=== PATIENT | male | born 1965 | race Two or more races ===

== ENCOUNTER 2024-05-19 13:31 | Outpatient (REF) | payer MEDICAID, SELFPAY ==
--- NOTE | ~2024-05-19 | XR_ITS ---
EXAMINATION: XR CHEST CLINICAL INFORMATION: Cough x1 month. COMPARISON: None available. TECHNIQUE: 2 views of the chest were obtained. FINDINGS: There are some discoid densities seen at the left lung base consistent with atelectasis or scarring. No significant confluent parenchymal disease is seen. Heart normal size. No evidence of pulmonary edema. No pneumothorax or pleural effusion. There is a 6 mm density seen at the right lung base somewhat peripherally which may represent vascular shadows, however, density of other etiology is not excluded and repeat study with nipple markers in place is recommended. XR/XR chest 2V IMPRESSION: A 6 mm density right lung base for which repeat PA study with nipple markers in place is recommended. Electronically signed by: Neil Howell MD 05/19/2024 03:53 PM [facility]REWS
== END 2024-05-19 13:32 | disposition home or self-care (01) ==
LOC: HO.HHCX 13:31
PROVIDERS: Visit Provider Internal Medicine
DX: R05.2 Subacute cough (principal)
CPT/HCPCS: 71046

== ENCOUNTER 2024-06-24 06:56 | Outpatient (REF) | payer MEDICAID, SELFPAY | END 2024-06-24 06:57 | disposition home or self-care (01) | LOC: HO.CT 06:56 | PROVIDERS: Visit Provider Internal Medicine | DX: J98.4 Other disorders of lung (principal); F17.200 Nicotine dependence, unspecified, uncomplicated | CPT/HCPCS: 71250 ==

== ENCOUNTER → 2024-06-24 06:58 | Outpatient (BNV) | payer MEDICAID, SELFPAY | PROVIDERS: Visit Provider Radiology Diagnostic Radiology | DX: R91.1 Solitary pulmonary nodule (principal); F17.200 Nicotine dependence, unspecified, uncomplicated | CPT/HCPCS: 71250 ==

== ENCOUNTER → 2024-08-06 15:37 | Outpatient (BNV) | payer MEDICAID, SELFPAY | PROVIDERS: Visit Provider Radiology Diagnostic Radiology | DX: M25.562 Pain in left knee (principal) | CPT/HCPCS: 73564 ==

== ENCOUNTER 2024-09-02 15:51 | Outpatient (REF) | payer MEDICAID, SELFPAY ==
[2024-09-02 18:16] LABS: MANUAL DIFF FLAG NO
[2024-09-02 18:35] LABS: Estimated Average Glucose 117 mg/dL; Hemoglobin A1C 154.6008 umol/L; Hemoglobin A1c % 5.7 % (<6.0); Total Hemoglobin (HGBA1C) 3976.2711 umol/L
[2024-09-02 18:47] LABS: Alanine Aminotransferase 41 U/L (0-40); Albumin Level 4.2 g/dL (3.5-5.0); Alkaline Phosphatase 69 U/L (39-117); Anion Gap 14 (12-20); Aspartate Amino Transferase 30 U/L (5-37); Bilirubin Total 0.3 mg/dL (0.0-1.0); Blood Urea Nitrogen 21 mg/dL (9-16); Calcium 8.9 mg/dL (8.4-10.2); Carbon Dioxide 24 mmol/L (22-29); Chloride 108 mmol/L (96-108); Cholesterol 163 mg/dL (<200); Estimated Glomerular Filt Rate > 60; Glucose Random 105 mg/dL (60-115); HDL Cholesterol 44 mg/dL (>40); LDL Cholesterol Calculated 85 mg/dL (<100); Potassium 3.9 mmol/L (3.3-5.1); Sodium 142 mmol/L (135-145); Total Protein 7.6 g/dL (6.5-8.0); Triglycerides 173 mg/dL (<150)
[2024-09-02 18:54] LABS: Basophils Absolute Auto 0.1 X10*3/uL (0.0-0.2); Basophils Percent Auto 0.9 % (0-2); Eosinophils Absolute Auto 0.1 X10*3/uL (0.0-0.4); Eosinophils Percent Auto 1.1 % (0-4); Hematocrit 44.7 % (42.0-52.0); Hemoglobin 15.5 g/dl (14.0-18.0); Imm Gran Abs Auto 0.06 X10*3/uL (0.00-0.03); Imm Gran Pct Auto 0.6 % (0.0-0.4); Lymphocytes Absolute Auto 2.3 X10*3/uL (1.2-4.9); Lymphocytes Percent Auto 24.7 % (20-40); Mean Corpuscular HGB Conc 34.7 g/dl (31.0-36.0); Mean Corpuscular Hemoglobin 29.9 pg (27.0-33.0); Mean Corpuscular Volume 86.3 fL (80.0-98.0); Mean Platelet Volume 10.5 fL (9.4-12.4); Monocytes Absolute Auto 0.8 X10*3/uL (0.1-1.2); Monocytes Percent Auto 8.2 % (2-11); Neutrophils Absolute Auto 6.1 x10*3/uL (2.0-8.3); Neutrophils Percent Auto 64.5 % (45-73); Platelet Count 246 X10*3/uL (160-400); Red Blood Count 5.18 X10*6/uL (4.60-5.80); White Blood Count 9.4 X10*3/uL (4.8-10.8)
[2024-09-02 19:05] LABS: TSH reflex Free T4 2.06 uIU/mL (0.32-4.0)
[2024-09-02 19:14] LABS: Reflex LDLD? No
--- OUTSIDE RECORDS SUMMARY | 2024-09-02 19:51 | XMS_ITS | Clinical Summary ---
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 30 patch 1 4 Active olmesartan-hydro CHLOROthiazide (Benicar HCT) 20-12.5 MG tabletIndication s:Hypertension, unspecified type Take 1 tablet by mouth Once per day. 90 tablet 2 5 08/05/19 26 Active Blood Pressure Monitoring (Blood Pressure Cuff) miscIndications: Hypertension, unspecified type 1 kit if needed each day (elevated bp). 1 each 5 Active losartan (Cozaar) 50 MG tabletIndication s:Hypertension, unspecified type TAKE 1 TABLET BY MOUTH EVERY DAY 90 tablet 5 08/05/19 25 Discontinu ed(Therapy completed) Active Problems Problem Noted Date Diagnosed Date Colon cancer screening 08/24/2024 Assessment & Plan (08/24/2024 4:37 PM EST): Sharda ordered Dietary counseling 08/24/2024 Assessment & Plan (08/24/2024 4:37 PM EST): Dietary Recommendations: Fruits, vegetables, whole grains, protein foods, and fat-free or low-fat dairy products are healthy choices. Eat different types of protein foods in your diet. This can include seafood, lean meats, poultry, beans, peas, lentils, nuts, seeds, soy products, and eggs. Limit foods and beverages higher in added sugars, saturated fat, and sodium. Exercise Recommendations: At least 150 minutes of moderate-intensity physical activity per week, or an equivalent combination of moderate- and vigorous-intensity activity Exercise counseling 08/24/2024 Chronic pain of left knee 08/05/2024 Assessment & Plan (08/24/2024 4:37 PM EST): Suspect OA, X-ray ordered Pt declines physical therapy at this time Referral to ortho Screening for colon cancer 06/29/2024 Assessment & Plan (06/29/2024 5:07 PM EST): Routine labs ordered, Tobacco use disorder 06/20/2024 Assessment & Plan (08/24/2024 4:37 PM EST): Reviewed tobacco cessation strategies , pt contemplative Assessment & Plan (06/29/2024 5:05 PM EST): Pt motivated to cut down, patch prescribed Hypertension 06/20/2024 Assessment & Plan (06/29/2024 5:07 PM EST): Above goal, increase losartan Metabolic labs ordered Counseling regarding lifestyle completed Metabolic labs ordered Lung density on x-ray 05/20/2024 Smoker 05/20/2024 Elevated blood pressure reading 05/13/2024 Assessment & Plan (05/13/2024 5:27 PM EST): No known hx HTN. Advised to fu with RN re htn in 3-4w Counseled re low salt diet/increase moderate physical activity. Subacute cough 05/13/2024 Assessment & Plan (05/13/2024 5:27 PM EST): It seems to be URI, however given hx smoking and dysphonia, there's concern about malignancy. I will rx Strep (unclear if a colonizer since clinically her pharynx is normal)with PCN and fu in 1m. Advised to quit smoking, do gargles with warm water and slat or sarahi tea. Increase water intake. Order CXR and labs, fu with new PCP in 1-2m Encounters Date Type Department Care Team Description 08/05/2024 3:15 PM EST Office Visit [address] [address] Clarisa Diana NP Hypertension, unspecified type (Primary Dx); Tobacco use disorder; Chronic pain of left knee; Screening for colon cancer; Colon cancer screening; Dietary counseling; Exercise counseling 08/01/2024 Telephone [facility] [address] [place] [phone] Hoa Ariza RN 07/31/2024 Telephone [facility] [address] [place] [phone] Hoa Ariza RN Results 07/24/[address] [address] Soheila Pierre [place] Chart Prep 07/19/[address] [address] Clarisa Diana NP Hypertension, unspecified type 06/20/2024 9:45 AM EST Office Visit [address] [address] Clarisa Diana NP Tobacco use disorder (Primary Dx); Hypertension, unspecified type; Healthcare maintenance 06/13/2024 Patient Outreach [facility] [address] [place], [place] [phone] Sridevi Nj FNP Pre-visit Planning (SDOH negative, Tobacco screening negative. ) from Last 3 Months Social History Tobacco Use Types Packs/Day Years Used Date Smoking Tobacco: Every Day Cigarettes Tobacco Cessation:Ready to Q uit: Not Asked; Counseling Given: Not Answered Depression Answer Date Recorded Patient Health Questionnaire-9 Score 0 06/20/2024 Patient Health Questionnaire-9 Score 0 06/20/2024 Last PHQ-9: Questionnaire Data Not on file 1 08/21/2023 Housing Stability Answer Date Recorded What is your housing situation today? I have porfirio foreman 06/13/[address] you li ve. Do you have problems with any of the following? None of the above 06/13/2024 Food Insecurity Answer Date Recorded Within the past 12 months, y ou worried that your food would run out before you got money to buy more: Never True 06/13/2024 Within the past 12 months,th e food you bought just didn't last and you didn't have enough money to get more: Never True Transportation Answer Date Recorded In the past 12 months, has l ack of transportation kept you from medical appts, meetings, work or from getting things needed for daily living? No 06/13/2024 Utilities Answer Date Recorded In the past 12 months, has t he electric, gas, oil or water company threatened to shut off services in your home? No 06/13/2024 Depression Answer Date Recorded Patient Health Questionnaire-2 Score 0 06/20/2024 Internet Access Answer Date Recorded Internet Access Q1 Yes 06/13/2024 Internet Access Q2 Not on file 06/13/2024 Sex and Gender Information Value Date Recorded Sex Assigned at Male 05/01/2022 10:39 AM EDT Legal Sex Male 10:39 AM EDT Gender Identity Male 05/01/2022 10:39 AM EDT Sexual Orientation Straight 05/01/2022 10 :39 AM EDT Last Filed Vital Signs Vital Sign Reading Time Taken Comments Blood Pressure 157/87 08/05/2024 3:06 PM EST Pulse 93 08/05/2024 3:06 PM EST Temperature 36.9 ??C (98.4 ??F) 08/05/2024 3:06 PM ES T Respiratory Rate 18 08/05/2024 3:06 PM EST Oxygen Saturation 98% 08/05/2024 3:06 PM EST Inhaled Oxygen Concentration - - Weight 106 kg (233 lb 6.4 oz) 08/05/2024 3:06 PM EST Height 165.1 cm (5' 5 ) 08/05/2024 3:06 PM EST Body Mass Index 38.84 08/05/2024 3:06 PM EST Plan of Treatment Upcoming Encounters Date Type Department Care Team (Late st Contact Info) Description 09/19/2024 2:30 PM EDT Office Visit [facility] [address] [place], [place] [phone] Clarisa Diana NP [address] [place] [address] Health Maintenance Due Date Last Done Comments CT Colonography 1965 Colonoscopy 1966 FIT 1965 FOBT 1965 HIV Screening 1965 Sigmoidoscopy 1966 Hepatitis C Screening 1984 DTaP/Tdap/Td Vaccines (1 - Tdap) 1985 Hepatitis B Vaccines (1 of 3 - 19+ 3-dose series) 1985 Pneumococcal Vaccine: 50+ Years (1 of 2 - PCV) 1985 Zoster Vaccines (1 of 2) 2016 COVID-19 Vaccine (3 - 2023-2 5 season) 2024 02/16/2021, 01/15/2021 Influenza Vaccine (#1) 2024 SDOH Screening 06/13/2025 06/13/2024 Alcohol/Substance Use Screening 06/20/2025 06/20/2024 Depression Screening 06/20/2025 06/20/2024, 06/20/2024 Tobacco Screening 08/05/2025 08/05/2024 Diabetes: Hemoglobin A1C 09/02/2025 09/02/2024 Colorectal Cancer Screening 08/21/2027 FIT DNA/Cologuard 08/21/2027 08/21/2024 Lipid Panel 09/02/2029 09/02/2024 RSV Patients and Patients Aged 60 years or older (1 - 1-dose 75+ series) 2041 HIB Vaccines Aged Out No longer eligi ble based on patient's age to complete this topic HPV Vaccines Aged Out No longer eligi ble based on patient's age to complete this topic Hepatitis A Vaccines Aged Out No long er eligible based on patient's age to complete this topic IPV Vaccines Aged Out No longer eligi ble based on patient's age to complete this topic Meningococcal Vaccine Aged Out No melissa karlo eligible based on patient's age to complete this topic RSV under 20 months Aged Out No longe r eligible based on patient's age to complete this topic Rotavirus Vaccines Aged Out No longer eligible based on patient's age to complete this topic Procedures Procedure Name Priority Date/Time Associated Diagnosis Comments LIPID PANEL, STANDARD Routine 09/02/2024 3:55 PM EST Hypertension, unspecified type HEMOGLOBIN A1C Routine 09/02/2024 3:55 PM EST Hypertension, unspecified type TSH W/REFLEX TO FT4 Routine 09/02/2024 3 :55 PM EST Elevated blood pressure reading CBC WITH AUTO DIFFERENTIAL Routine 09/02/2024 3:55 PM EST Subacute cough COMPREHENSIVE METABOLIC PANEL Routine 09/02/2024 3:55 PM EST Elevated blood pressure reading LAB COLOGUARD?? COLON CANCER SCREEN Routine 08/21/2024 5:00 AM EST Screening for colon cancer XR KNEE 4+ VIEWS LEFT Routine 08/06/2024 3:37 PM EST Chronic pain of left knee CT CHEST WO CONTRAST Routine 06/24/2024 7:15 AM EST Lung density on x-ray Smoker from Last 3 Months Results * TSH with Reflex to Free T4 (09/02/2024 3:55 PM EST) TSH reflex Free T4 2.06 0.32 - 4.0 uIU/mL [facility] Blood 09/02/2024 3:55 PM EST 09/02/2024 6:14 PM EST us Glo Gill MD LAB BLOOD ORDERABLES Fin al Result [facility] [address] [place] [phone] * (ABNORMAL) CBC auto differential (09/02/2024 3:55 PM EST) White Blood Count 9.4 4.8 - 10.8 X10*3/uL [facility] Red Blood Count 5.18 4.60 - 5.80 X10*6/uL [facility] Hemoglobin 15.5 14.0 - 18.0 g/dl [facility] Hematocrit 44.7 42.0 - 52.0 % [facility] Mean Corpuscular Volume 86.3 80.0 - 98.0 fL [facility] Mean Corpuscular Hemoglobin 29.9 27.0 - 33.0 pg [facility] Mean Corpuscular HGB Conc 34.7 31.0 - 36.0 g/dl [facility] Red Cell Distribution Width 14.0 11.0 - 16.0 % [facility] Platelet Count 246 160 - 400 X10*3/uL [facility] Mean Platelet Volume 10.5 9.4 - 12.4 fL [facility] Neutrophils Percent Auto 64.5 45 - 73 % [facility] Imm Gran Pct Auto 0.6(H) 0.0 - 0.4 % [facility] Lymphocytes Percent Auto 24.7 20 - 40 % [facility] Monocytes Percent Auto 8.2 2 - 11 % [facility] Eosinophils Percent Auto 1.1 0 - 4 % [facility] Basophils Percent Auto 0.9 0 - 2 % [facility] NRBC Pct Auto 0.0 0.0 - 0.2 /100WBC [facility] Neutrophils Absolute Auto 6.1 2.0 - 8.3 x10*3/uL [facility] Imm Gran Abs Auto 0.06(H) 0.00 - 0.03 X10*3/uL [facility] Lymphocytes Absolute Auto 2.3 1.2 - 4.9 X10*3/uL [facility] Monocytes Absolute Auto 0.8 0.1 - 1.2 X10*3/uL [facility] Eosinophils Absolute Auto 0.1 0.0 - 0.4 X10*3/uL [facility] Basophils Absolute Auto 0.1 0.0 - 0.2 X10*3/uL [facility] NRBC Abs Auto 0.000 0.0 - 0.012 X10*3/uL [facility] Blood Venous blood specimen / Unknown 09/02/2024 3:55 PM EST 09/02/2024 6:14 PM EST us Glo Gill MD LAB BLOOD ORDERABLES Fin al Result Performing Organization Address [facility] Co de Phone Number [facility] [address] [place] [phone] * Hemoglobin A1c (09/02/2024 3:55 PM EST) Hemoglobin A1c 5.7 <6.0 % [facility] Comment:Hemoglobin A1C Refer ence Range Adults: 4.8 - 6.0 % Non diabetic: < 6.0 % Goal: < 7.0 %Additional Action Suggested: > 8.0 %Note: Hemoglobin A1c results are invalid for patients with abnormal amounts of HbF. Blood transfusions may impact the HbA1c concentration in the patient sample. Estimated Average Glucose 117 mg/dL [facility] Comment:eAG = Estimated ave rage glucose which is %A1C expressed asaverage glucose, using the formula of the N1J-VtvcfljWrjrsek Glucose study (ADAG), Diabetes Care, Vol.31,#8,2007 Blood Venous blood specimen / Unknown 09/02/2024 3:55 PM EST 09/02/2024 6:14 PM EST us Clarisa Diana NP LAB BLOOD ORDERABLES Final Resul t Performing Organization Address [facility] Co de Phone Number [facility] [address] [place] [phone] * (ABNORMAL) Lipid Panel, Standard (09/02/2024 3:55 PM EST) Triglycerides 173(H) <150 mg/dL [facility] Comment:Desirable Triglyceri de: less than 150 mg/dLBorderline High Triglyceride 150-199 mg/dLHigh Triglyceride: 200-499 mg/dLVery High Triglyceride: greater than or equal to 5OO mg/dL Cholesterol 163 <200 mg/dL [facility] Comment:Desirable Cholestero l: less than 200 mg/dLBorderline High Cholesterol: 200-239 mg/dLHigh Cholesterol: greater than 239 mg/dL LDL Cholesterol Calculated 85 <100 mg/dL [facility] Comment:Desirable LDL: less than 100 mg/dLNear Optimal/Above Optimal LDL: 110- 129 mg/dLBorderline High LDL: 130-159 mg/dLHigh LDL: 160-189 mg/dLVery High LDL: greater than or equal to 190 mg/dL HDL Cholesterol 44 >40 mg/dL [facility] Comment:Desirable HDL: great er than 40 mg/dL Note: This HDL assay may give artificially low results in patients with liver disease. Blood Venous blood specimen / Unknown 09/02/2024 3:55 PM EST 09/02/2024 6:14 PM EST us Clarisa Diana DRILL PRESS SET UP OPERATOR RADIAL LAB BLOOD ORDERABLES Final Resul t [facility] [address] [place] [phone] * (ABNORMAL) Comprehensive Metabolic Panel (09/02/2024 3:55 PM EST) Sodium 142 135 - 145 mmol/L [facility] Potassium 3.9 3.3 - 5.1 mmol/L [facility] Chloride 108 96 - 108 mmol/L [facility] Carbon Dioxide 24 22 - 29 mmol/L [facility] Anion Gap 14 12 - 20 [facility] Urea Nitrogen (BUN) 21(H) 9 - 16 mg/dL [facility] Creatinine, Serum 0.91 0.5 - 1.4 mg/dL [facility] Estimated Glomerular Filt Rate >60 [facility] Comment:Chronic Kidney Disea se: Estimated GFR < 60 mL/min/1.47h1Wxxuig Kidney Disease: Estimated GFR < 15 mL/min/1.73m2 Glucose 105 60 - 115 mg/dL [facility] Calcium 8.9 8.4 - 10.2 mg/dL [facility] Bilirubin, Total 0.3 0.0 - 1.0 mg/dL [facility] Aspartate Amino Transferase 30 5 - 37 U/L [facility] Alanine Aminotransferase 41(H) 0 - 40 U/L [facility] Total Protein 7.6 6.5 - 8.0 g/dL [facility] Albumin Level 4.2 3.5 - 5.0 g/dL [facility] Alkaline Phosphatase 69 39 - 117 U/L [facility] Blood Venous blood specimen / Unknown 09/02/2024 3:55 PM EST 09/02/2024 6:14 PM EST Glo Gill MD LAB BLOOD ORDERABLES Fin al Result [facility] [address] [place] [phone] * (ABNORMAL) Cologuard?? colon cancer screening (08/21/2024 5:00 AM EST) Cologuard Result Positive( A) Negative 08/26/2024 7:47 PM EST [facility] (CLIA #:[id number]) Comment: POSITIVE TEST RESULT. A positive Cologuard result should be followed with a colonoscopy or visual examination of the colon. The normal value (reference range) for this assay is negative. TEST DESCRIPTION: Composite algorithmic analysis of stool DNA-biomarkers with hemoglobin immunoassay. ?? Quantitative values of individual biomarkers are not reportable and are not associated with individual biomarker result reference ranges. Cologuard is intended for colorectal cancer screening of adults of either sex, 45 years or older, who are at average-risk for colorectal cancer (CRC). Cologuard has been approved for use by the U.S. FDA. The performance of Cologuard was established in a cross sectional study of average-risk adults aged 50-84. Cologuard performance in patients ages 45 to 49 years was estimated by sub-group analysis of near-age groups. Colonoscopies performed for a positive result may find as the most clinically significant lesion: colorectal cancer [4.0%], advanced adenoma (including sessile serrated polyps greater than or equal to 1cm diameter) [20%] or non- advanced adenoma [31%]; or no colorectal neoplasia [45%]. These estimates are derived from a prospective cross-sectional screening study of 10,000 individuals at average risk for colorectal cancer who were screened with both Cologuard and colonoscopy. (Gale Orellana al, N Engl J Med 2014;370(14):6657-3487.) Cologuard may produce a false negative or false positive result (no colorectal cancer or precancerous polyp present at colonoscopy follow up). A negative Cologuard test result does not guarantee the absence of CRC or advanced adenoma (pre-cancer). The current Cologuard screening interval is every 3 years. ([employer] and U.S. Multi-Society Task Force). Cologuard performance data in a 10,000 patient pivotal study using colonoscopy as the reference method can be accessed at the following location: www.[employer].com/results. Additional description of the Cologuard test process, warnings and precautions can be found at www.[employer].Fliptop. Stool specimen (specimen) 08/21/2024 5:00 AM EST 08/23/2024 12:32 PM EST Clarisa Diana DRILL PRESS SET UP OPERATOR RADIAL LAB MOLECULAR DIAGNOSTICS ORDERA KANWAL Final Result [facility] (CLIA #:[id number]) [address] [place] [address], * XR Knee 4+ Views Left (08/06/2024 3:37 PM EST) Anatomical Region Laterality Modality Lower Extremities, Knee Left Radiogra phic Imaging 08/06/2024 3:37 PM EST Narrative 08/06/2024 4:33 PM EST ?[facility] ?[address] ?[place] [address] ?XRay Report ? Signed ? Patient: Solano,Johan ?MR#: [id number] ?? [id number] ? : 1965 ?Acct:[id number] ? Age/Sex: 59 / M ?ADM Date: 02/05/25 ? Loc: HO.HHCX ? Attending Dr: Clarisa Diana DRILL PRESS SET UP OPERATOR RADIAL ? Ordering Physician: Clarisa Diana NP ?? Date of Service: 08/06/24 ?? Procedure(s): XR knee LT 4V ?? Accession Number(s): [id number] ? cc: Clarisa Diana NP ? EXAMINATION: ?? XR KNEE, LEFT ? CLINICAL INFORMATION: ?? left knee pain and limited rom ? COMPARISON: ?? None available. ? TECHNIQUE: ?? Four views of the left knee. ? FINDINGS: ?? Reduction of tricompartment joint space without acute fracture, ?? dislocation, loose bodies. There is mild joint effusion. There is a ?? subtle lucency along lateral femoral condyle question focal osteopenia, ?? bone contusion ??or artifact. ? XR/XR knee LT 4V ?? IMPRESSION: ?? No acute fracture or dislocation. Subtle lucency along the lateral ?? femoral condyle on one view only. Artifact versus osteopenia or bone ?? marrow contusion. ? There is mild suprapatellar joint effusion. ? Electronically signed by: ??Buster Rocha MD ??08/06/2024 04:30 PM EST RP ? Dictated By: ?Buster Rocha MD ? Signed By: ?<Electronically signed by Buster Rocha MD in OV> ?08/06/24 1630 ? DD/ 1537 ? TD/TT: 08/06/24 1611 ? Business Banking Sales Assistant: MSM ? Procedure Note Corrina White - 08/06/2024 [place] [address] XRay Report Signed Patient: Anupama Solano#: [id number] : 1965Acct:[id number] Age/Sex: 59 / MADM Date: 08/06/24 Loc: HO.HHCX Attending Dr: Clarisa Diana DRILL PRESS SET UP OPERATOR RADIAL Ordering Physician: Clarisa Diana NP Date of Service: 08/06/24 Procedure(s): XR knee LT 4V Accession Number(s): [id number] cc: Clarisa Diana DRILL PRESS SET UP OPERATOR RADIAL EXAMINATION: XR KNEE, LEFT CLINICAL INFORMATION: left knee pain and limited rom COMPARISON: None available. TECHNIQUE: Four views of the left knee. FINDINGS: Reduction of tricompartment joint space without acute fracture, dislocation, loose bodies. There is mild joint effusion. There is a subtle lucency along lateral femoral condyle question focal osteopenia, bone contusion or artifact. XR/XR knee LT 4V IMPRESSION: No acute fracture or dislocation. Subtle lucency along the lateral femoral condyle on one view only. Artifact versus osteopenia or bone marrow contusion. There is mild suprapatellar joint effusion. Electronically signed by: Buster Rocha MD 08/06/2024 04:30 PM EST RP Dictated By: Buster Rocha MD Signed By: <Electronically signed by Buster Rocha MD in OV> 08/06/24 1630 DD/ 1537 TD/TT: 08/06/24 1611 Business Banking Sales Assistant: JARON us Clarisa Diana NP IMG XR PROCEDURES Edited Result - Final * CT Chest w/o Contrast (06/24/2024 7:15 AM EST) Anatomical Region Laterality Modality Body, Chest Computed Tomogra phy 06/24/2024 7:15 AM EST Narrative 07/30/2024 9:04 AM EST ? [facility] ?[address] ?[place] [address] ? CT Scan Report ? Signed ? Patient: Johan Solano ?MR#: [id number] ?? [id number] ? : 1965 ?Acct:[id number] ? Age/Sex: 59 / M ?ADM Date: 06/24/24 ? Loc: HO.CT ? Attending Dr: Glo Gill MD ? Ordering Physician: Glo Gill MD ?? Date of Service: 06/24/24 ?? Procedure(s): CT chest wo IV con ?? Accession Number(s): [id number] ? cc: Glo Gill MD ? Report Number: ?? [id number]: Total DLP = ??279.00 mGy-cm ?? EXAMINATION: CT CHEST WITHOUT IV CONTRAST ? INDICATION: right base lung density/smoker ? COMPARISON: There are no prior studies available for comparison. ? TECHNIQUE: Helical CT scan of the chest was performed without ?? intravenous contrast. ??Coronal and sagittal reformatted images were ?? generated and reviewed. ? This CT exam was performed with one or more of the following dose ?? reduction techniques: automated exposure control, adjustment of the mA ?? and/or kV according to patient size, use of iterative reconstruction ?? technique. ? DLP: 279 mGy-cm ? CHEST: ? THYROID: The thyroid is unremarkable. ? LUNGS: There is a 2 mm nodule the left lung apex (series 5, image 79). ?? No additional pulmonary nodules are identified. There is linear ?? scarring in the right middle lobe, in the right lower lobe, and in the ?? lingula. There are no airspace opacities. ? MEDIASTINUM: There is no mediastinal lymphadenopathy. ? WILLA: Evaluation of the hilar regions is limited by lack of intravenous ?? contrast material. ? CARDIOVASCULATURE: The heart is normal in size. ??There is no ?? pericardial effusion. ??The thoracic aorta is normal in caliber. ? DEGREE OF CORONARY CALCIFICATION: ??mild ? PLEURA: ??There is no pleural effusion. ??No pneumothorax. ? MAIN AIRWAYS: The mainstem bronchi and proximal branches are patent. ? AXILLA: There is no axillary lymphadenopathy. ? BONES AND SOFT TISSUES: There is degenerative disc disease of the spine. ? UPPER ABDOMEN: The visualized portion of the liver demonstrates ?? diffusely decreased attenuation, consistent with steatosis. The ?? visualized portions of the spleen and right adrenal gland are ?? unremarkable. There is a 1.7 cm left adrenal nodule which measures -0.5 ?? HU in density, consistent with an adenoma. ? CT/CT chest wo IV con ?? IMPRESSION: ? 1. 2 mm left apical lung nodule. No additional pulmonary nodules are ?? identified. Follow-up should be performed according to Fleischner ?? Society guidelines below. ? 2. Hepatic steatosis. ? 3. 1.7 cm left adrenal adenoma. ? Fleischner Criteria for pulmonary nodule follow-up ? SOLID NODULES: ?? Low risk patient: ?? <6mm: no follow-up ?? 6-8mm: 6 month follow-up CT ?? >8mm: PET/Biopsy/ 3 month follow-up CT ? High risk patient: ?? <6mm: 12 month follow-up CT ?? 6-8mm: 6 month follow-up CT ?? >8mm: PET/Biopsy/ 3 month follow-up CT ? SUB-SOLID/GROUNDGLASS NODULES: ?? All patients: ?? > or = 6mm: 6 month follow-up CT ? *Please note that in patients in the following categories, the ?? Fleischner criteria do not apply: Immunocompromised, lung cancer ?? screening population, age below 35, and patients with known malignancy ? Electronically signed by: ??Pa Godoy MD ??07/30/2024 09:02 AM EST ? Dictated By: ?Pa Godoy MD ? Signed By: ?<Electronically signed by aP Godoy MD in OV> ?07/30/24 0902 ? DD/ ? TD/TT: 06/24/24731 ? Business Banking Sales Assistant: ? Procedure Note Christopher, Image - 07/30/[address] [place] [address] [address] Scan Report Signed Patient: Anupama Solano#: [id number] : 1965Acct:[id number] Age/Sex: 59 / MADM Date: 06/24/24 Loc: HO.CT Attending Dr: Glo Gill MD Ordering Physician: Glo Gill MD Date of Service: 06/24/24 Procedure(s): CT chest wo IV con Accession Number(s): [id number] cc: Glo Gill MD Report Number: [id number]: Total DLP = 279.00 mGy-cm EXAMINATION: CT CHEST WITHOUT IV CONTRAST INDICATION: right base lung density/smoker COMPARISON: There are no prior studies available for comparison. TECHNIQUE: Helical CT scan of the chest was performed without intravenous contrast. Coronal and sagittal reformatted images were generated and reviewed. This CT exam was performed with one or more of the following dose reduction techniques: automated exposure control, adjustment of the mA and/or kV according to patient size, use of iterative reconstruction technique. DLP: 279 mGy-cm CHEST: THYROID: The thyroid is unremarkable. LUNGS: There is a 2 mm nodule the left lung apex (series 5, image 79). No additional pulmonary nodules are identified. There is linear scarring in the right middle lobe, in the right lower lobe, and in the lingula. There are no airspace opacities. MEDIASTINUM: There is no mediastinal lymphadenopathy. WILLA: Evaluation of the hilar regions is limited by lack of intravenous contrast material. CARDIOVASCULATURE: The heart is normal in size. There is no pericardial effusion. The thoracic aorta is normal in caliber. DEGREE OF CORONARY CALCIFICATION: mild PLEURA: There is no pleural effusion. No pneumothorax. MAIN AIRWAYS: The mainstem bronchi and proximal branches are patent. AXILLA: There is no axillary lymphadenopathy. BONES AND SOFT TISSUES: There is degenerative disc disease of the spine. UPPER ABDOMEN: The visualized portion of the liver demonstrates diffusely decreased attenuation, consistent with steatosis. The visualized portions of the spleen and right adrenal gland are unremarkable. There is a 1.7 cm left adrenal nodule which measures -0.5 HU in density, consistent with an adenoma. CT/CT chest wo IV con IMPRESSION: 1. 2 mm left apical lung nodule. No additional pulmonary nodules are identified. Follow-up should be performed according to Fleischner Society guidelines below. 2. Hepatic steatosis. 3. 1.7 cm left adrenal adenoma. Fleischner Criteria for pulmonary nodule follow-up SOLID NODULES: Low risk patient: <6mm: no follow-up 6-8mm: 6 month follow-up CT >8mm: PET/Biopsy/ 3 month follow-up CT High risk patient: <6mm: 12 month follow-up CT 6-8mm: 6 month follow-up CT >8mm: PET/Biopsy/ 3 month follow-up CT SUB-SOLID/GROUNDGLASS NODULES: All patients: > or = 6mm: 6 month follow-up CT *Please note that in patients in the following categories, the Fleischner criteria do not apply: Immunocompromised, lung cancer screening population, age below 35, and patients with known malignancy Electronically signed by: Pa Godoy MD 07/30/2024 09:02 AM EST Dictated By: Pa Godoy MD Signed By: <Electronically signed by Pa Godoy MD in OV> 07/30/24901 DD/ TD/TT: 06/24/24 0732 Business Banking Sales Assistant: Glo Gill MD IMG CT PROCEDURES Edited Result - Final from Last 3 Months Insurance [facility] C3 Care Teams Industrial Aerial Installer Relationship Specialty Start Date End Date Clarisa Diana NP [address] [place] [id number] PCP - General Family Medicine 06/20/24
--- OUTSIDE RECORDS SUMMARY | 2024-09-02 19:51 | XMS_ITS | Encounter Summary ---
Author Organization [employer] Address [address] [facility] [address] [place] [address] Care Team Providers Care Ad Copy Writer Name Role Phone Clarisa Triplett NP Primary Care Provider [phone] Reason for Referral * Consultation (Urgent) - Authorized Specialty Diagnoses / Procedures Referred By Roby villa Referred To Contact Gastroenterology Diagnoses Colon cancer screening Clarisa Triplett NP [address] [place] [address] Phone: tel: fax: [facility] [address] [place] [address] Phone: tel: fax: Referral ID Status Reason Start Date Expiration Date Visits Requested Visits Authorized [id number] Authorized Specialty Services Required 08/27/2024 08/27/2025 6 6 * Consultation (Routine) - Authorized Specialty Diagnoses / Procedures Referred By Roby villa Referred To Contact Orthopaedic Surgery Diagnoses Chronic pain of left knee Clarisa Triplett NP [address] [place] [address] Phone: tel: fax: [facility] [address] [place] [address] Phone: tel: Referral ID Status Reason Start Date Expiration Date Visits Requested Visits Authorized [id number] Authorized Specialty Services Required 08/05/2024 08/05/2025 6 6 Encounter Details Date Type Department Care Team (Late st Contact Info) Description 08/05/2024 3:15 PM EST Office Visit [facility] [address] [place] [address] Clarisa Triplett NP [address] [place] [address] Hypertension, unspecified type (Primary Dx); Tobacco use disorder; Chronic pain of left knee; Screening for colon cancer; Colon cancer screening; Dietary counseling; Exercise counseling Social History Tobacco Use Types Packs/Day Years Used Date Smoking Tobacco: Every Day Cigarettes Depression Answer Date Recorded Patient Health Questionnaire-9 [...] Orientation Straight 05/01/2022 10 :39 AM EDT documented as of this encounter Last Filed Vital Signs Vital Sign Reading [...] Mass Index 38.84 08/05/2024 3:06 PM EST documented in this encounter Progress Notes * Clarisa Triplett, MEND WORKER - 08/05/2024 3:15 PM EST Subjective: Johan Solano is a 59 y.o. male with hypertension. Since last visit, taking and tolerating medications, no side effects, not checking home bp New concerns: left leg has been swollen for a year, No injury painful left knee is painful . Interferes with ability to exercise, worse after sitting still for prolonged times. No injury or instability, no redness fever or pain HPI Hypertension ROS: taking medications as instructed, no medication side effects noted, no TIA's, no chest pain on exertion, no dyspnea on exertion, and no swelling of ankles. BP Readings from Last 3 Encounters: 08/05/24 (!) 157/87 06/20/24 (!) 156/96 05/13/24 (!) 160/100 No results found for: CASTILLO DALEB24HUR Patient Active Problem List Diagnosis Elevated blood pressure reading Subacute cough Lung density on x-ray Smoker Tobacco use disorder Hypertension Screening for colon cancer Chronic pain of left knee Colon cancer screening Dietary counseling Exercise counseling Social History Tobacco Use Smoking Status Every Day Types: Cigarettes Smokeless Tobacco Not on file Objective: BP (!) 157/87 (BP Location: Left arm, Patient Position: Sitting, BP Cuff Size: Large adult) Pulse93 Temp 98.4 ??F (36.9 ??C) (Oral) Resp 18 Ht 5' 5 (1.651 m) Wt 233 lb 6.4 oz (106 kg) SpO2 98% BMI 38.84 kg/m?? Appearance alert, well appearing, and in no distress and overweight. General exam BP noted to be well controlled today in office, S1, S2 normal, no gallop, no murmur, chest clear, no JVD, no HSM, no edema. Lab review: orders written for new lab studies as appropriate; see orders. The ASCVD Risk score (Adolph LIN, et al., 2019) failed to calculate for the following reasons: Cannot find a previous HDL lab Cannot find a previous total cholesterol lab Current Outpatient Medications Medication Sig Dispense Refill Blood Pressure Monitoring (Blood Pressure Cuff) [facility] 1 kit if needed each day (elevated bp). 1 each0 nicotine (Nicoderm CQ) 21 MG/24HR patch Place 1 patch on the skin 1 (one) time each day at the sametime. 30 patch 1 olmesartan-hydroCHLOROthiazide (Benicar HCT) 20-12.5 MG tablet Take 1 tablet by mouth Once per day.90 tablet 2 No current facility-administered medications for this visit. Assessment: Hypertension improved, no significant medication side effects noted, and borderline controlled. Plan: Repeat labs ordered prior to next appointment. Reviewed diet, exercise and weight control. The following changes are to be made: discontinue losartan, initiate benicar hct 20-12.5 . Future bmp ordered Bp cuff prescribed Problem List Items Addressed This Visit Tobacco use disorder Current Assessment & Plan Reviewed tobacco cessation strategies , pt contemplative Hypertension - Primary Relevant Medications olmesartan-hydroCHLOROthiazide (Benicar HCT) 20-12.5 MG tablet Blood Pressure Monitoring (Blood Pressure Cuff) [facility] Screening for colon cancer Relevant Orders Cologuard?? colon cancer screening Chronic pain of left knee Current Assessment & Plan Suspect OA, X-ray ordered Pt declines physical therapy at this time Referral to ortho Relevant Orders XR Knee 4+ Views Left (Completed) Referral to Orthopaedic Surgery Colon cancer screening Current Assessment & Plan Cologuard ordered Dietary counseling Current Assessment & Plan Dietary Recommendations: Fruits, vegetables, whole grains, protein foods, and fat-free or low-fat dairy products are healthychoices. Eat different types of protein foods in your diet. This can include seafood, lean meats, poultry, beans, peas, lentils, nuts, seeds, soy products, and eggs. Limit foods and beverages higher in added sugars, saturated fat, and sodium. Exercise Recommendations: At least 150 minutes of moderate-intensity physical activity per week, or an equivalent combinationof moderate- and vigorous-intensity activity Exercise counseling documented in this encounter Miscellaneous Notes * Assessment & Plan Note - Clarisa Triplett NP - 08/24/2024 4:37 PM ESTAssociated Problem(s): Chronic pain of left knee Suspect OA, X-ray ordered Pt declines physical therapy at this time Referral to ortho * Assessment & Plan Note - Clarisa Triplett NP - 08/24/2024 4:37 PM ESTAssociated Problem(s): Colon cancer screening Cologuard ordered * Assessment & Plan Note - Clarisa Triplett NP - 08/24/2024 4:37 PM ESTAssociated Problem(s): Dietary counseling Dietary Recommendations: Fruits, vegetables, whole grains, protein foods, and fat-free or low-fat dairy products are healthychoices. Eat different types of protein foods in your diet. This can include seafood, lean meats, poultry, beans, peas, lentils, nuts, seeds, soy products, and eggs. Limit foods and beverages higher in added sugars, saturated fat, and sodium. Exercise Recommendations: At least 150 minutes of moderate-intensity physical activity per week, or an equivalent combinationof moderate- and vigorous-intensity activity * Assessment & Plan Note - Clarisa Triplett NP - 08/24/2024 4:37 PM ESTAssociated Problem(s): Tobacco use disorder Reviewed tobacco cessation strategies , pt contemplative * Addendum Note - Clarisa Triplett NP - 08/05/2024 3:15 PM ESTAddended by: CLARISA TRIPLETT on: 08/27/2024 10:05 AM Modules accepted: Orders documented in this encounter Plan of Treatment Upcoming Encounters Date Type Department Care Team (Late st Contact Info) Description 09/19/2024 2:30 PM EDT Office Visit [facility] [address] [place] [address] Clarisa Triplett NP [address] [place] [address] Scheduled Referrals Name Type Priority Associated Diagnoses Order Schedule Referral to Orthopaedic Surgery Outpatient Referral Routine Chronic pain of left knee Expected: 08/05/2024 (Approximate), Expires: 08/05/2025 Referral to Gastroenterology Outpatient Referral Urgent Colon cancer screening Expected: 08/27/2024 (Approximate), Expires: 08/27/2025 documented as of this encounter Procedures Procedure Name Priority Date/Time Associated Diagnosis Comments LAB COLOGUARD?? COLON CANCER SCREEN Routine 08/21/2024 5:00 AM EST Screening for colon cancer XR KNEE 4+ VIEWS LEFT Routine 08/06/2024 3:37 PM EST Chronic pain of left knee documented in this encounter Results * (ABNORMAL) Cologuard?? colon cancer screening (08/21/2024 5:00 AM EST) Cologuard Result Positive( A) Negative 08/26/2024 7:47 PM EST [email or web address] (CLIA #:[id number]) Comment: POSITIVE TEST RESULT. A positive Cologuard [...] (Gale Orellana al, N Engl J Med 2014;370(14):8943-7656.) Cologuard may produce a false negative or false positive result (no colorectal cancer or precancerous polyp present at colonoscopy follow up). A negative Cologuard test result does not guarantee the absence of CRC or advanced adenoma (pre-cancer). The current Cologuard screening interval is every 3 years. ([place] Cancer Society and U.S. Multi-Society Task Force). Cologuard performance data in a 10,000 patient pivotal study using colonoscopy as the reference method can be accessed at the following location: www.[employer].Lopoly/results. Additional description of the Cologuard test process, warnings and precautions can be found at www.cologuard.com. Stool specimen (specimen) 08/21/2024 5:00 AM EST 08/23/2024 12:32 PM EST Clarisa Triplett NP [facility] Final Result [email or web address] (CLIA #:[id number]) [address] [place] [address], * XR Knee 4+ Views Left (08/06/2024 3:37 PM EST) Anatomical Region Laterality Modality Lower Extremities, Knee Left Radiogra phic Imaging 08/06/2024 3:37 PM EST Narrative 08/06/2024 4:33 PM EST ?[facility] ?[address] ?[place] [address] ?XRay Report ? Signed ? Patient: Solano,Johan ?MR#: [id number] ?? [id number] ? : 1965 ?Acct:[id number] ? Age/Sex: 59 / M ?ADM Date: 08/06/24 ? Loc: HO.HHCX ? Attending Dr: Clarisa Triplett MEND WORKER ? Ordering Physician: Clarisa Triplett NP ?? Date of Service: 08/06/24 ?? Procedure(s): XR knee LT 4V ?? Accession Number(s): [id number] ? cc: Clarisa Triplett NP ? EXAMINATION: ?? XR KNEE, LEFT [...] 04:30 PM EST RP ? Dictated By: ?Josefina,Buster S MD ? Signed By: ?<Electronically signed by Buster S Josefina, in OV> ?08/06/24 1630 ? DD/ 1537 ? TD/TT: 08/06/24 1611 ? Statistician Mathematical: MSM ? Procedure Note Corrina White - 08/06/[address] [address] XRay Report Signed Patient: Anupama Solano#: [id number] : 1965Acct:[id number] Age/Sex: 59 / MADM Date: 08/06/24 Loc: HO.HHCX Attending Dr: Clarisa Triplett MEND WORKER Ordering Physician: Clarisa Triplett NP Date of Service: 08/06/24 Procedure(s): XR knee LT 4V Accession Number(s): [id number] cc: Clarisa Triplett MEND WORKER EXAMINATION: XR KNEE, LEFT CLINICAL INFORMATION: left [...] Buster Rocha MD 08/06/2024 04:30 PM EST Dictated By: Buster Rocha MD Signed By: <Electronically signed by Buster Rocha MD in OV> 08/06/24 1630 DD/ 1537 TD/TT: 08/06/24 1611 Statistician Mathematical: JARON Clarisa Triplett NP IMG XR PROCEDURES Edited Result - Final documented in this encounter Visit Diagnoses Diagnosis Hypertension, unspecified type- Primary Tobacco use disorder Chronic pain of left knee Screening for colon cancer Special screening for malignant neoplasms, colon Colon cancer screening Special screening for malignant neoplasms, colon Dietary counseling Dietary surveillance and counseling Exercise counseling documented in this encounter Additional Health Concerns Assessment Noted Time PHQ-9 Depression Total Score: 0 06/20/20 24 9:31 AM EST documented as of this encounter Care Teams Ad Copy Writer Relationship Specialty Start Date End Date Clarisa Triplett NP [address] [place] [id number] PCP - General Family Medicine 06/20/24 documented as of this encounter
[2024-09-03 08:22] LABS: HBS Num1 46.44 mIU/mL (0-7.99); HBc Num1 9.29 S/CO (0.00-0.79); HIV AB/AG Nonreactive (Nonreactive); HIV Num 1 0.06 S/CO (0.00-0.99); ~HepC Num1 0.11 S/CO (0.00-0.79); ~Hepatitis B Surface Antibody REACTIVE (Nonreactive); ~Hepatitis C Antibody Nonreactive (Nonreactive)
[2024-09-03 09:33] LABS: HBc Num2 9.15 S/CO; HBc Num3 9.22 S/CO; Hepatitis B Core Antibody Reactive (Nonreactive)
== END 2024-09-02 15:52 | disposition home or self-care (01) ==
LOC: HO.HHCL 15:51
PROVIDERS: Internal Medicine; Visit Provider Nurse Practitioner Family
DX: Z00.00 Encounter for general adult medical examination without abnormal findings (principal); R05.2 Subacute cough; R03.0 Elevated blood-pressure reading, without diagnosis of hypertension; I10 Essential (primary) hypertension
CPT/HCPCS: 36415; 80053; 80061; 83036; 84443; 85025; 86704; 86706; 86803; 87389

== ENCOUNTER 2024-10-15 11:47 | Outpatient (REF) | payer MEDICAID, SELFPAY ==
--- NOTE | ~2024-10-15 | XR_ITS ---
EXAMINATION: XR KNEE AP STANDING CLINICAL INFORMATION: M25.561 - Pain in right knee COMPARISON: Left knee radiographs 08/06/24. TECHNIQUE: AP bilateral standing view of the knees was obtained. FINDINGS: Mild bicompartmental osteoarthrosis of both knees, symmetrical. Normal alignment. No bone lesions or fractures. Normal-appearing soft tissues. XR/XR knee standing BI IMPRESSION: 1. No acute bony abnormalities. 2. Symmetrical bicompartmental osteoarthritis in both knees. Electronically signed by: Chalo Chinchilla MD 10/16/2024 12:23 PM EDT
--- OUTSIDE RECORDS SUMMARY | 2024-10-16 14:44 | XMS_ITS | Clinical Summary ---
Author Organization [employer] Address [address] [place] [address] Care Team Providers Care Rotary Helper Name Role Phone DarlingClarisa segura KIMMIE Primary Care Provider [phone] Allergies No known active allergies Medications nicotine [...] Type Department Care Team Description 09/17/2024 Telephone [facility] [address] [place] [phone] Clarisa Diana NP DNKA/Late Cancel 09/12/2024 Population Health Risk Score [facility] Department [address] [place] [phone] Provider, Population Health Generic 09/09/2024 Telephone [facility] [address] [place] [phone] Soheila Pierre MA Chart Prep 08/05/2024 3:15 PM EST Office Visit [facility] [address] [place] [phone] Clarisa Diana NP Hypertension, unspecified type (Primary Dx); Tobacco use disorder; Chronic pain of left knee; Screening for colon cancer; Colon cancer screening; Dietary counseling; Exercise counseling 08/01/2024 Telephone [facility] [address] [place] [phone] Hoa Ariza RN 07/31/2024 Telephone [facility] [address] [place] [phone] Hoa Ariza RN Results 07/24/2024 Telephone [facility] [address] [place] [phone] Soheila Pierre MA Chart Prep 07/19/[address] [address] Clarisa Diana NP Hypertension, unspecified type from [...] Description 11/11/2024 1:30 PM EDT Office Visit [facility] [address] [place] [address] Clarisa Diana NP [address] [place] [address] Health Maintenance Due Date Last Done Comments [...] Free T4 2.06 0.32 - 4.0 uIU/mL [facility] Blood 09/02/2024 3:55 PM EST 09/02/2024 6:14 PM EST us Glo Gill MD LAB BLOOD ORDERABLES Fin al Result [facility] [address] [place] [phone] * (ABNORMAL) CBC auto differential (09/02/2024 3:55 PM EST) White Blood Count 9.4 4.8 - 10.8 X10*3/uL [facility] Red Blood Count 5.18 4.60 - 5.80 X10*6/uL [facility] Hemoglobin 15.5 14.0 - 18.0 g/dl [facility] Hematocrit 44.7 42.0 - 52.0 % [facility] Mean Corpuscular Volume 86.3 80.0 - 98.0 fL [facility] Mean Corpuscular Hemoglobin 29.9 27.0 - 33.0 pg [facility] Mean Corpuscular HGB Conc 34.7 31.0 - 36.0 g/dl [facility] Red Cell Distribution Width 14.0 11.0 - 16.0 % [facility] Platelet Count 246 160 - 400 X10*3/uL [facility] Mean Platelet Volume 10.5 9.4 - 12.4 fL [facility] Neutrophils Percent Auto 64.5 45 - 73 % [facility] Imm Gran Pct Auto 0.6(H) 0.0 - 0.4 % [facility] Lymphocytes Percent Auto 24.7 20 - 40 % [facility] Monocytes Percent Auto 8.2 2 - 11 % [facility] Eosinophils Percent Auto 1.1 0 - 4 % [facility] Basophils Percent Auto 0.9 0 - 2 % [facility] NRBC Pct Auto 0.0 0.0 - 0.2 /100WBC [facility] Neutrophils Absolute Auto 6.1 2.0 - 8.3 x10*3/uL [facility] Imm Gran Abs Auto 0.06(H) 0.00 - 0.03 X10*3/uL [facility] Lymphocytes Absolute Auto 2.3 1.2 - 4.9 X10*3/uL [facility] Monocytes Absolute Auto 0.8 0.1 - 1.2 X10*3/uL [facility] Eosinophils Absolute Auto 0.1 0.0 - 0.4 X10*3/uL [facility] Basophils Absolute Auto 0.1 0.0 - 0.2 X10*3/uL [facility] NRBC Abs Auto 0.000 0.0 - 0.012 X10*3/uL [facility] Blood Venous blood specimen / Unknown 09/02/2024 3:55 PM EST 09/02/2024 6:14 PM EST us Glo Gill MD LAB BLOOD ORDERABLES Fin al Result Performing Organization Address [facility] Co de Phone Number [facility] [address] [place] [phone] * Hepatitis C Antibody with Reflex to HCV, RNA, Quantitative, Real-Time PCR (09/02/2024 3:55 PM EST) Hepatitis C Antibody Nonreactive Nonreactive [facility] Comment:Antibodies to HCV no t detected; does not exclude early acuteHCV infection. Blood Venous blood specimen / Unknown 09/02/2024 3:55 PM EST 09/02/2024 6:14 PM EST us Clarisa Diana NP LAB BLOOD ORDERABLES Final Resul t Performing Organization Address [facility] Co de Phone Number [facility] [address] [place] [phone] * Hepatitis B Core Antibody, Total (09/02/2024 3:55 PM EST) Hepatitis B Core Antibody Reactive Nonreactive [facility] Comment:Presumptive evidence of anti-HBc. Blood Venous blood specimen / Unknown 09/02/2024 3:55 PM EST 09/02/2024 6:14 PM EST Clarisa Diana NP LAB BLOOD ORDERABLES Final Resul t Performing Organization Address [facility] Co de Phone Number [facility] [address] [place] [phone] * HIV-1/2 Antigen and Antibodies, Fourth Generation, with Reflexes (09/02/2024 3:55 PM EST) HIV AB/AG Nonreactive Nonreactive [facility] Comment:HIV-1 p24 Ag and/or HIV-1/HIV-2 Ab not detected.A test result that is nonreactive does not exclude thepossibility of exposure to or infection with HIV-1 and/orHIV-2. Nonreactive results in this assay for individualswith prior exposure to HIV-1 and/or HIV-2 may be due toantigen and antibody levels that are below the limit ofdetection of this assay.The [employer] HIV Ag/Ab Combo assay result andsupplemental assay results should be interpreted inconjunction with the patient's clinical presentation,history and other laboratory results. If the results areinconsistent with clinical evidence, additional testing issuggested to confirm the result. Blood Venous blood specimen / Unknown 09/02/2024 3:55 PM EST 09/02/2024 6:14 PM EST Clarisa Diana NP LAB BLOOD ORDERABLES Final Resul t Performing Organization Address City/[facility]/ZIP Co de Phone Number [facility] [address] [place] [phone] * Hepatitis B Surface Antibody, Qualitative (09/02/2024 3:55 PM EST) Pathologist [facility] ~Hepatitis B Surface Antibody REACTIVE Nonreactive [facility] Comment:REACTIVE: > 11.99 mI U/mL Blood Venous blood specimen / Unknown 09/02/2024 3:55 PM EST 09/02/2024 6:14 PM EST us Clarisa Diana NP LAB BLOOD ORDERABLES Final Resul t Performing Organization Address City/[facility]/ZIP Co de Phone Number [facility] [address] [place] [phone] * Hemoglobin A1c (09/02/2024 3:55 PM EST) Pathologist [facility] Hemoglobin A1c 5.7 <6.0 % [facility] Comment:Hemoglobin A1C Refer ence Range Adults: 4.8 - 6.0 % Non diabetic: < 6.0 % Goal: < 7.0 %Additional Action Suggested: > 8.0 %Note: Hemoglobin A1c results are invalid for patients with abnormal amounts of HbF. Blood transfusions may impact the HbA1c concentration in the patient sample. Estimated Average Glucose 117 mg/dL [facility] Comment:eAG = Estimated ave rage glucose which is %A1C expressed asaverage glucose, using the formula of the G0C-TbdyuxtIcxhghv Glucose study (ADAG), Diabetes Care, Vol.31,#8,2007 Blood Venous blood specimen / Unknown 09/02/2024 3:55 PM EST 09/02/2024 6:14 PM EST us Clarisa Diana NP LAB BLOOD ORDERABLES Final Resul t [facility] [address] [place] [phone] * (ABNORMAL) Lipid Panel, Standard (09/02/2024 3:55 PM EST) Triglycerides 173(H) <150 mg/dL [facility] Comment:Desirable Triglyceri de: less than 150 mg/dLBorderline High Triglyceride 150-199 mg/dLHigh Triglyceride: 200-499 mg/dLVery High Triglyceride: greater than or equal to 5OO mg/dL Cholesterol 163 <200 mg/dL [facility] Comment:Desirable Cholestero l: less than 200 mg/dLBorderline High Cholesterol: 200-239 mg/dLHigh Cholesterol: greater than 239 mg/dL LDL Cholesterol Calculated 85 <100 mg/dL [facility] Comment:Desirable LDL: less than 100 mg/dLNear Optimal/Above Optimal LDL: 110- 129 mg/dLBorderline High LDL: 130-159 mg/dLHigh LDL: 160-189 mg/dLVery High LDL: greater than or equal to 190 mg/dL HDL Cholesterol 44 >40 mg/dL [facility] Comment:Desirable HDL: great er than 40 mg/dL Note: This HDL assay may give artificially low results in patients with liver disease. Blood Venous blood specimen / Unknown 09/02/2024 3:55 PM EST 09/02/2024 6:14 PM EST us Clarisa Diana HALL TENDER LAB BLOOD ORDERABLES Final Resul t [facility] [address] [place] [phone] * (ABNORMAL) Comprehensive Metabolic Panel (09/02/2024 3:55 PM EST) Sodium 142 135 - 145 mmol/L [facility] Potassium 3.9 3.3 - 5.1 mmol/L [facility] Chloride 108 96 - 108 mmol/L [facility] Carbon Dioxide 24 22 - 29 mmol/L [facility] Anion Gap 14 12 - 20 [facility] Urea Nitrogen (BUN) 21(H) 9 - 16 mg/dL [facility] Creatinine, Serum 0.91 0.5 - 1.4 mg/dL [facility] Estimated Glomerular Filt Rate >60 [facility] Comment:Chronic Kidney Disea se: Estimated GFR < 60 mL/min/1.46v8Ymmgip Kidney Disease: Estimated GFR < 15 mL/min/1.73m2 Glucose 105 60 - 115 mg/dL [facility] Calcium 8.9 8.4 - 10.2 mg/dL [facility] Bilirubin, Total 0.3 0.0 - 1.0 mg/dL [facility] Aspartate Amino Transferase 30 5 - 37 U/L [facility] Alanine Aminotransferase 41(H) 0 - 40 U/L [facility] Total Protein 7.6 6.5 - 8.0 g/dL [facility] Albumin Level 4.2 3.5 - 5.0 g/dL [facility] Alkaline Phosphatase 69 39 - 117 U/L [facility] Blood Venous blood specimen / Unknown 09/02/2024 3:55 PM EST 09/02/2024 6:14 PM EST us Glo Gill MD LAB BLOOD ORDERABLES Fin al Result [facility] [address] [place] [phone] * (ABNORMAL) Cologuard?? colon cancer screening (08/21/2024 5:00 AM EST) Cologuard Result Positive( A) Negative 08/26/2024 7:47 PM EST [facility] (CLIA #:[id number]) Comment: POSITIVE TEST RESULT. A positive Cologuard [...] (Gale Orellana al, N Engl J Med 2014;370(14):7587-5392.) Cologuard may produce a false negative or false positive result (no colorectal cancer or precancerous polyp present at colonoscopy follow up). A negative Cologuard test result does not guarantee the absence of CRC or advanced adenoma (pre-cancer). The current Cologuard screening interval is every 3 years. ([place] [employer] and U.S. Multi-Society Task Force). Cologuard performance data in a 10,000 patient pivotal study using colonoscopy as the reference method can be accessed at the following location: [email or web address]. Additional description of the Cologuard test process, warnings and precautions can be found at www.Edifilmrd.com. Stool specimen (specimen) 08/21/2024 5:00 AM EST 08/23/2024 12:32 PM EST us Clarisa Diana HALL TENDER LAB MOLECULAR DIAGNOSTICS ORDERA KANWAL Final Result [facility] (CLIA #:[id number]) [address] [place] [address], * XR Knee 4+ Views Left (08/06/2024 3:37 PM EST) Anatomical Region Laterality Modality Lower Extremities, Knee Left Radiogra phic Imaging 08/06/2024 3:37 PM EST Narrative 08/06/2024 4:33 PM EST ?[facility] ?[address] ?[place] [address] ?XRay Report ? Signed ? Patient: Johna Solano ?MR#: [id number] ?? [id number] ? : 1965 ?Acct:[id number] ? Age/Sex: 59 / M ?ADM Date: 08/06/24 ? Loc: HO.HHCX ? Attending Dr: Clarisa Diana HALL TENDER ? Ordering Physician: Clarisa Diana NP ?? Date of Service: 08/06/24 ?? Procedure(s): XR knee LT 4V ?? Accession Number(s): [id number] ? cc: Clarisa Diana HALL TENDER ? EXAMINATION: ?? XR KNEE, LEFT ? [...] DD/ 1537 ? TD/TT: 08/06/24 1611 ? Sail Repair Person: MSM ? Procedure Note Christopher Corrina - 08/06/[address] [address] XRay Report Signed Patient: Anupama Solano#: [id number] : 1965Acct:[id number] Age/Sex: 59 / MADM Date: 08/06/24 Loc: HO.HHCX Attending Dr: Clarisa Diana HALL TENDER Ordering Physician: Clarisa Diana NP Date of Service: 08/06/24 Procedure(s): XR knee LT 4V Accession Number(s): [id number] cc: Clarisa Diana HALL TENDER EXAMINATION: XR KNEE, LEFT CLINICAL INFORMATION: left [...] by: Buster Rocha MD 08/06/2024 04:30 PM [facility] Dictated By: Buster Rocha MD Signed By: <Electronically signed by Buster Rocha MD in OV> 08/06/24 1630 DD/ 1537 TD/TT: 08/06/24 1611 Sail Repair Person: JARON us Clarisa Diana NP IMG XR PROCEDURES Edited Result - Final from Last 3 Months [facility] Care Teams Rotary Helper Relationship Specialty Start Date End Date Clarisa Diana NP [address] [place] [address] PCP - General Family Medicine 06/20/24
== END 2024-10-15 11:48 | disposition home or self-care (01) ==
LOC: HO.HOSX 11:47
PROVIDERS: Visit Provider Physician Assistant
DX: M17.12 Unilateral primary osteoarthritis, left knee (principal)
CPT/HCPCS: 20610; 73565; 99212; J1010; J2003

== ENCOUNTER 2024-10-15 13:23 | Outpatient (AMB) | payer MEDICAID, SELFPAY ==
--- NOTE | 2024-10-15 13:56 | A.OFFVIS_ITS ---
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 Patient reports his pain has been present for 2.5 months. He was seen by his PCP who sent him for x-rays and referred to orthopedics. His pain is located at the medial and lateral aspect of knee.Currently he has swelling in his knee that makes it difficult to bend his knee. However he does feel his swelling has improved. No other tx. Finds little relief with Tylenol and ibuprofen. 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 She states the last 2.5 mths he has pain. He denies injury, states the pain comes towards the end of the day he has worsening pain. He develops stiffness. [facility] Social History (Updated 10/15/24 @ 13:57 by JENNIFER Hernandez) Patient Tobacco Use Status: Current everyday Tobacco user Current occupational status: unemployed Review of Systems Const All systems reviewed & are unremarkable except as noted in HPI and below Physical Exam Vital Signs: BMI result Body Mass Index 37.4 Const General: cooperative and no acute distress Orientation/consciousness: patient oriented x3 Resp Effort & Inspection: normal respiratory effort and able to speak in complete sentences Cardio Peripheral pulses: Peripheral pulses 2+ throughout Neuro General: patient oriented x3 Extrem Other: Left knee normal to inspection with a moderate joint effusion present. There is tenderness along the lateral aspect of the patella. He has full range of motion with no ligamentous laxity. Calf supple nontender neurovascularly intact. Office Procedures AMB Joint Injection/Aspiration Joint Injection/Aspiration Details: asp 50cc left knee joint fluid Primary Site: left knee Prep: site was prepped using aseptic technique and injection warnings given Injected: 80 mg of, DepoMedrol, with 8 mL of, 1% plain lidocaine and in the joint Approach Used: lateral parapatellar Procedure: The patient tolerated the procedure well and there was some relief with the local anesthesia Coding 79704 - Glenohumeral/Tronchanteric Bursa/Intraarticular Procedure code (CPT) selection complete Results Reviewed Results Reviewed: X-rays of the left knee obtained in the office today and reviewed by me show mild medial and lateral osteoarthritis. Assessment & Plan Assessment & Plan (1) Arthritis of left knee: Code(s): M17.12 - Unilateral primary osteoarthritis, left knee Category: Medical Plan Left knee was aspirated today 50 cc of joint fluid and reinjected with steroid which he tolerated well. I stressed the importance of working with physical therapy to maintain his strength and motion. He will increase activities as tolerated and if symptoms arise or there is concerns he will contact our office otherwise follow up as needed. Orders: Orders XR knee standing BI 10/15/24 M25.561 - Pain in right knee, M25.562 - Pain in left knee Coding Level of Care Code New Pt Level 3 (64395) Complex EM visit Add On G2211 Diagnoses Arthritis of left knee M17.12 CPT Codes Coding - Joint 7: 28372 - Glenohumeral/Tronchanteric Bursa/Intraarticular ([id number])
[2024-10-15 14:00] VITALS: BMI 37.4
--- OUTSIDE RECORDS SUMMARY | 2024-10-15 15:55 | XMS_ITS | Clinical Summary ---
Author Organization [employer] Address [address] [facility] [address] [place] [address] Care Team Providers Care Claims Correspondence Clerk Name Role Phone DarlingClarisa segura KIMMIE Primary Care Provider [phone] Allergies No known active allergies Medications nicotine (Nicoderm CQ) 21 MG/24HR patchIndications :Tobacco use disorder Place 1 patch on the skin 1 (one) time each day at the same time. 30 patch 1 06/20/2024 Active olmesartan-hydro CHLOROthiazide (Benicar HCT) 20-12.5 MG tabletIndication s:Hypertension, unspecified type Take 1 tablet by mouth Once per day. 90 tablet 2 08/05/2024 Active Blood Pressure Monitoring (Blood Pressure Cuff) miscIndications: Hypertension, unspecified type 1 kit if needed each day (elevated bp). 1 each 08/05/2024 Active Active Problems Problem Noted Date Diagnosed Date [...] Encounters Date Type Department Care Team Description 09/17/2024 Telephone [facility] [address] [place] [phone] Clarisa Diana NP DNKA/Late Cancel 09/12/2024 Population Health Risk Score [facility] Department [address] [place] [phone] Provider, Population Health Generic 09/09/2024 Telephone [facility] [address] [place] [phone] Soheila Pierre MA Chart Prep 08/05/2024 3:15 PM EST Office Visit [facility] [address] [place] [phone] Clarisa Diana NP Hypertension, unspecified type (Primary Dx); Tobacco use disorder; Chronic pain of left knee; Screening for colon cancer; Colon cancer screening; Dietary counseling; Exercise counseling 08/01/2024 Telephone [facility] [address] [place] [phone] Hoa Ariza RN 07/31/2024 Telephone [facility] [address] [place] [phone] Hoa Ariza RN Results 07/24/2024 Telephone [facility] [address] [place] [phone] Soheila Pierre MA Chart Prep 07/19/[address] [address] Clarisa Diana NP Hypertension, unspecified type from Last 3 Months Social History Tobacco [...] Care Team (Late st Contact Info) Description 11/11/2024 1:30 PM EDT Office Visit [facility] [address] [place] [address] Clarisa Diana NP [address] [place] [address] Health Maintenance Due Date Last Done Comments CT Colonography 1966 Colonoscopy 1966 FIT 1966 FOBT 1966 Sigmoidoscopy 1966 DTaP/Tdap/Td Vaccines (1 - Tdap) 1985 Hepatitis [...] older (1 - 1-dose 75+ series) 2041 HIV Screening Completed 09/02/2024 Hepatitis C Screening Completed 09/02/2024 HIB Vaccines Aged Out No longer eligi [...] 09/02/2024 3:55 PM EST Hypertension, unspecified type HIV 1/2 ANTIGEN/ANTIBODY, FOURTH GENERATION W/RFL Routine 09/02/2024 3:55 PM EST Healthcare maintenance HEPATITIS B CORE AB TOTAL Routine 09/02/2024 3:55 PM EST Healthcare maintenance HEPATITIS B SURFACE ANTIBODY, QUALITATIVE Routine 09/02/2024 3:55 PM EST Healthcare maintenance HEPATITIS C AB W/REFL TO HCV RNA, QN, PCR Routine 09/02/2024 3:55 PM EST Healthcare maintenance TSH W/REFLEX TO FT4 Routine 09/02/2024 3 [...] PM EST Chronic pain of left knee from Last 3 Months Results * TSH with Reflex to Free T4 (09/02/2024 3:55 PM EST) TSH reflex Free T4 2.06 0.32 - 4.0 uIU/mL [facility] Blood 09/02/2024 3:55 PM EST 09/02/2024 6:14 PM EST us Glo Gill MD LAB BLOOD ORDERABLES Fin al Result [facility] [address] [place] [phone] * (ABNORMAL) CBC auto differential (09/02/2024 3:55 PM EST) White Blood Count 9.4 4.8 - 10.8 X10*3/uL [facility] Red Blood Count 5.18 4.60 - 5.80 X10*6/uL [facility] Hemoglobin 15.5 14.0 - 18.0 g/dl [facility] Hematocrit 44.7 42.0 - 52.0 % [facility] Mean Corpuscular Volume 86.3 80.0 - 98.0 fL [facility] Mean Corpuscular Hemoglobin 29.9 27.0 - 33.0 pg [facility] Mean Corpuscular HGB Conc 34.7 31.0 - 36.0 g/dl [facility] Red Cell Distribution Width 14.0 11.0 - 16.0 % [facility] Platelet Count 246 160 - 400 X10*3/uL [facility] Mean Platelet Volume 10.5 9.4 - 12.4 fL [facility] Neutrophils Percent Auto 64.5 45 - 73 % [facility] Imm Gran Pct Auto 0.6(H) 0.0 - 0.4 % [facility] Lymphocytes Percent Auto 24.7 20 - 40 % [facility] Monocytes Percent Auto 8.2 2 - 11 % [facility] Eosinophils Percent Auto 1.1 0 - 4 % [facility] Basophils Percent Auto 0.9 0 - 2 % [facility] NRBC Pct Auto 0.0 0.0 - 0.2 /100WBC [facility] Neutrophils Absolute Auto 6.1 2.0 - 8.3 x10*3/uL [facility] Imm Gran Abs Auto 0.06(H) 0.00 - 0.03 X10*3/uL [facility] Lymphocytes Absolute Auto 2.3 1.2 - 4.9 X10*3/uL [facility] Monocytes Absolute Auto 0.8 0.1 - 1.2 X10*3/uL [facility] Eosinophils Absolute Auto 0.1 0.0 - 0.4 X10*3/uL [facility] Basophils Absolute Auto 0.1 0.0 - 0.2 X10*3/uL [facility] NRBC Abs Auto 0.000 0.0 - 0.012 X10*3/uL [facility] Blood Venous blood specimen / Unknown 09/02/2024 3:55 PM EST 09/02/2024 6:14 PM EST us Glo Gill MD LAB BLOOD ORDERABLES Fin al Result Performing Organization Address [facility] Co de Phone Number [facility] [address] [place] [phone] * Hepatitis C Antibody with Reflex to HCV, RNA, Quantitative, Real-Time PCR (09/02/2024 3:55 PM EST) Hepatitis C Antibody Nonreactive Nonreactive [facility] Comment:Antibodies to HCV no t detected; does not exclude early acuteHCV infection. Blood Venous blood specimen / Unknown 09/02/2024 3:55 PM EST 09/02/2024 6:14 PM EST us Clarisa Diana NP LAB BLOOD ORDERABLES Final Resul t Performing Organization Address [facility] Co de Phone Number [facility] [address] [place] [phone] * Hepatitis B Core Antibody, Total (09/02/2024 3:55 PM EST) Hepatitis B Core Antibody Reactive Nonreactive [facility] Comment:Presumptive evidence of anti-HBc. Blood Venous blood specimen / Unknown 09/02/2024 3:55 PM EST 09/02/2024 6:14 PM EST Clarisa Diana NP LAB BLOOD ORDERABLES Final Resul t Performing Organization Address [facility] Co de Phone Number [facility] [address] [place] [phone] * HIV-1/2 Antigen and Antibodies, Fourth Generation, with Reflexes (09/02/2024 3:55 PM EST) HIV AB/AG Nonreactive Nonreactive [facility] Comment:HIV-1 p24 Ag and/or HIV-1/HIV-2 Ab not detected.A test result that is nonreactive does not exclude thepossibility of exposure to or infection with HIV-1 and/orHIV-2. Nonreactive results in this assay for individualswith prior exposure to HIV-1 and/or HIV-2 may be due toantigen and antibody levels that are below the limit ofdetection of this assay.The [employer]row HIV Ag/Ab Combo assay result andsupplemental assay results should be interpreted inconjunction with the patient's clinical presentation,history and other laboratory results. If the results areinconsistent with clinical evidence, additional testing issuggested to confirm the result. Blood Venous blood specimen / Unknown 09/02/2024 3:55 PM EST 09/02/2024 6:14 PM EST Clarisa Diana NP LAB BLOOD ORDERABLES Final Resul t Performing Organization Address City/[facility]/ZIP Co de Phone Number [facility] [address] [place] [phone] * Hepatitis B Surface Antibody, Qualitative (09/02/2024 3:55 PM EST) Pathologist [facility] ~Hepatitis B Surface Antibody REACTIVE Nonreactive [facility] Comment:REACTIVE: > 11.99 mI U/mL Blood Venous blood specimen / Unknown 09/02/2024 3:55 PM EST 09/02/2024 6:14 PM EST us Clarisa Diana NP LAB BLOOD ORDERABLES Final Resul t Performing Organization Address City/[facility]/ZIP Co de Phone Number [facility] [address] [place] [phone] * Hemoglobin A1c (09/02/2024 3:55 PM EST) Pathologist [facility] Hemoglobin A1c 5.7 <6.0 % [facility] Comment:Hemoglobin A1C Refer ence Range Adults: 4.8 - 6.0 % Non diabetic: < 6.0 % Goal: < 7.0 %Additional Action Suggested: > 8.0 %Note: Hemoglobin A1c results are invalid for patients with abnormal amounts of HbF. Blood transfusions may impact the HbA1c concentration in the patient sample. Estimated Average Glucose 117 mg/dL [facility] Comment:eAG = Estimated ave rage glucose which is %A1C expressed asaverage glucose, using the formula of the [id number]-[id number] Glucose study (ADAG), Diabetes Care, Vol.31,#8,2007 Blood Venous blood specimen / Unknown 09/02/2024 3:55 PM EST 09/02/2024 6:14 PM EST us Clarisa Diana NP LAB BLOOD ORDERABLES Final Resul t [facility] [address] [place] [phone] * (ABNORMAL) Lipid Panel, Standard (09/02/2024 3:55 PM EST) Triglycerides 173(H) <150 mg/dL [facility] Comment:Desirable Triglyceri de: less than 150 mg/dLBorderline High Triglyceride 150-199 mg/dLHigh Triglyceride: 200-499 mg/dLVery High Triglyceride: greater than or equal to 5OO mg/dL Cholesterol 163 <200 mg/dL [facility] Comment:Desirable Cholestero l: less than 200 mg/dLBorderline High Cholesterol: 200-239 mg/dLHigh Cholesterol: greater than 239 mg/dL LDL Cholesterol Calculated 85 <100 mg/dL [facility] Comment:Desirable LDL: less than 100 mg/dLNear Optimal/Above Optimal LDL: 110- 129 mg/dLBorderline High LDL: 130-159 mg/dLHigh LDL: 160-189 mg/dLVery High LDL: greater than or equal to 190 mg/dL HDL Cholesterol 44 >40 mg/dL [facility] Comment:Desirable HDL: great er than 40 mg/dL Note: This HDL assay may give artificially low results in patients with liver disease. Blood Venous blood specimen / Unknown 09/02/2024 3:55 PM EST 09/02/2024 6:14 PM EST us Clarisa Diana [employer] LAB BLOOD ORDERABLES Final Resul t [facility] [address] [place] [phone] * (ABNORMAL) Comprehensive Metabolic Panel (09/02/2024 3:55 PM EST) Sodium 142 135 - 145 mmol/L [facility] Potassium 3.9 3.3 - 5.1 mmol/L [facility] Chloride 108 96 - 108 mmol/L [facility] Carbon Dioxide 24 22 - 29 mmol/L [facility] Anion Gap 14 12 - 20 [facility] Urea Nitrogen (BUN) 21(H) 9 - 16 mg/dL [facility] Creatinine, Serum 0.91 0.5 - 1.4 mg/dL [facility] Estimated Glomerular Filt Rate >60 [facility] Comment:Chronic Kidney Disea se: Estimated GFR < 60 mL/min/1.11w2Zflxso Kidney Disease: Estimated GFR < 15 mL/min/1.73m2 Glucose 105 60 - 115 mg/dL [facility] Calcium 8.9 8.4 - 10.2 mg/dL [facility] Bilirubin, Total 0.3 0.0 - 1.0 mg/dL [facility] Aspartate Amino Transferase 30 5 - 37 U/L [facility] Alanine Aminotransferase 41(H) 0 - 40 U/L [facility] Total Protein 7.6 6.5 - 8.0 g/dL [facility] Albumin Level 4.2 3.5 - 5.0 g/dL [facility] Alkaline Phosphatase 69 39 - 117 U/L [facility] Blood Venous blood specimen / Unknown 09/02/2024 3:55 PM EST 09/02/2024 6:14 PM EST us Glo Gill MD LAB BLOOD ORDERABLES Fin al Result [facility] [address] [place] [phone] * (ABNORMAL) Cologuard?? colon cancer screening (08/21/2024 5:00 AM EST) Cologuard Result Positive( A) Negative 08/26/2024 7:47 PM EST [facility] (CLIA #:[id number]) Comment: POSITIVE TEST RESULT. A positive Cologuard [...] (Gale Orellana al, N Engl J Med 2014;370(14):3945-1012.) Cologuard may produce a false negative or false positive result (no colorectal cancer or precancerous polyp present at colonoscopy follow up). A negative Cologuard test result does not guarantee the absence of CRC or advanced adenoma (pre-cancer). The current Cologuard screening interval is every 3 years. ([place] [employer] and U.S. Multi-Society Task Force). Cologuard performance data in a 10,000 patient pivotal study using colonoscopy as the reference method can be accessed at the following location: [email or web address]/results. Additional description of the Cologuard test process, warnings and precautions can be found at www.[employer]uSignrd.com. Stool specimen (specimen) 08/21/2024 5:00 AM EST 08/23/2024 12:32 PM EST us Clarisa Diana [employer] LAB MOLECULAR DIAGNOSTICS ORDERA KANWAL Final Result [facility] (CLIA #:[id number]) [address] [place] [address], * XR Knee 4+ Views Left (08/06/2024 3:37 PM EST) Anatomical Region Laterality Modality Lower Extremities, Knee Left Radiogra phic Imaging 08/06/2024 3:37 PM EST Narrative 08/06/2024 4:33 PM EST ?[facility] ?[address] ?[place] [address] ?XRay Report ? Signed ? Patient: Johan Solano ?MR#: [id number] ?? [id number] ? : 1965 ?Acct:[id number] ? Age/Sex: 59 / M ?ADM Date: 08/06/24 ? Loc: HO.HHCX ? Attending Dr: Clarisa Diana HAT LINING PASTER ? Ordering Physician: Clarisa Diana NP ?? Date of Service: 08/06/24 ?? Procedure(s): XR knee LT 4V ?? Accession Number(s): [id number] ? cc: Clarisa Diana H[employer] PASTER ? EXAMINATION: ?? XR KNEE, LEFT ? [...] DD/ 1537 ? TD/TT: 08/06/24 1611 ? Environmental Health Officer: MSM ? Procedure Note Christopher Corrina - 08/06/[address] [address] XRay Report Signed Patient: Anupama Solano#: [id number] : 1965Acct:[id number] Age/Sex: 59 / MADM Date: 08/06/24 Loc: HO.HHCX Attending Dr: Clarisa Diana [employer] PASTER Ordering Physician: Clarisa Diana NP Date of Service: 08/06/24 Procedure(s): XR knee LT 4V Accession Number(s): [id number] cc: Calrisa Diana [employer] PA[employer] EXAMINATION: XR KNEE, LEFT CLINICAL INFORMATION: left [...] by: Buster Rocha MD 08/06/2024 04:30 PM [facility] Dictated By: Buster Rocha MD Signed By: <Electronically signed by Buster Rocha MD in OV> 08/06/24 1630 DD/ 1537 TD/TT: 08/06/24 1611 Environmental Health Officer: JARON us Clarisa Diana NP IMG XR PROCEDURES Edited Result - Final from Last 3 Months [facility] [employer] [facility] Care Teams Claims Correspondence Clerk Relationship Specialty Start Date End Date Clarisa Diana NP [address] [place] [address] PCP - General Family Medicine 06/20/24
== END 2024-10-17 13:06 | disposition home or self-care (01) ==
LOC: HO.HOS 13:23
PROVIDERS: Visit Provider Physician Assistant
DX: M17.12 Unilateral primary osteoarthritis, left knee (principal)
CPT/HCPCS: 20610; 99203

== ENCOUNTER → 2024-10-15 13:51 | Outpatient (BNV) | payer MEDICAID, SELFPAY | PROVIDERS: Visit Provider Radiology Diagnostic Radiology | DX: M17.0 Bilateral primary osteoarthritis of knee (principal) | CPT/HCPCS: 73565 ==

== ENCOUNTER 2025-01-27 09:09 | Outpatient (AMB) | payer SELFPAY ==
--- NOTE | 2025-01-27 09:16 | MHC.OFFVIS ---
Vital Signs 01/27/25 09:22 Height 5 ft 5 in Weight 228 lb BMI 37.9 BP 144/84 H Blood Pressure Location Rt brachial Position Sitting Pulse 86 Pulse Source Pulse Oximeter Pulse Oximetry (%) 96 Oxygen Delivery Method Room Air Intake Visit Reasons: colo screening Intake Note: New pt for initial colo screening CC: No FMHx per pt. Pt has never had any surgeries in the past. Pt denies any sx at this time. Wallisian int requested for provider/medical purposes only. Denied for intake with MA. Laundry Technician Required: Yes Laundry Technician Services: Laundry Technician Present Laundry Technician Name: [facility] (Provider Only) Information Interpreted: clinical only Accompanied by: Self / Same As Patient Allergies No Known Allergies Allergy (Verified 10/15/24 13:57) HPI HPI colo screening: Details: 59 year old? male here today for pre colonoscopy screening.? Patient was sent to us by his PCP.? This is his first colonoscopy screening.? Positive Cologuard in August of 2024. Patient denies any gastrointestinal symptoms in the past or at present.? 2 Maternal uncles after being diagnosed with colon cancer.? Patient never had anesthesia in the past.? Negative for history of sleep apnea.? Denies any history of cardiac, renal, pulmonary, or hepatic disease.?? No history of infectious? diseases like hepatitis A, B, C, HIV or tuberculosis.? Patient is not on any anticoagulation [facility] Medical History HTN (hypertension) Family History Mother Breast cancer Social History Patient Tobacco Use Status: Current everyday Tobacco user Current occupational status: unemployed Review of Systems Const Denies weight gain and Denies weight loss ENT Reports no additional complaints, Denies dysphagia and Denies odynophagia Card Reports no additional complaints Resp Reports no additional complaints GI Denies abdominal pain, Denies belching, Denies melena, Denies bloating, Denies change in bowel habits, Denies dysphagia, Denies excessive flatus, Denies dyspepsia, Denies heartburn, Denies diarrhea, Denies loose stools, Denies nausea, Denies odynophagia and Denies vomiting Reports no additional complaints Musc Reports no additional complaints Neuro Reports no additional complaints Psych Reports no additional complaints Endo Reports no additional complaints Physical Exam Vital Signs: Last Vital Signs Pulse 86 01/27/25 09:22 BP 144/84 H 01/27/25 09:22 Pulse Ox 96 01/27/25 09:22 Oxygen Delivery Method Room Air 01/27/25 09:22 BMI result Body Mass Index 37.9 Const General: healthy appearing, no acute distress and well developed Nutritional Appearance: well nourished and obese Orientation/consciousness: patient oriented x3 Resp Effort & Inspection: normal respiratory effort, able to speak in complete sentences, no tracheal deviation and symmetric chest movement Auscultation: clear to auscultation bilaterally Cardio Rate: regular rate GI Inspection: Yes normal to inspection, No distended and Yes obesity Palpation (GI): Soft to palpation, not firm, nontender and No hepatosplenomegaly present Auscultation: normal bowel sounds General: Yes no CVA tenderness Back/Spine/Pelvis Back: no CVA tenderness Skin General skin exam: elasticity normal, turgor normal and dry skin Neuro General: patient oriented x3 Psych Appearance: grossly normal Mental Status: mental status grossly normal Assessment & Plan Assessment & Plan (1) Screen for colon cancer: Code(s): Z12.11 - Encounter for screening for malignant neoplasm of colon (2) Positive colorectal cancer screening using Cologuard test: Code(s): R19.5 - Other fecal abnormalities Plan Patient denies any GI, cardiac or respiratory symptoms.? Patient never had anesthesia in the past. ? Denies any history of sleep apnea.? No history infectious diseases in the past or present.? Not on any anticoagulation therapy.? No family or personal history of colon cancer or polyps.? Patient denies melena, hematochezia, unintentional weight loss or ribbon like stools.? Discussed at length the pre-procedure,? prep, diet & medications as well as what to expect prior, during and after the procedure.?? Stressed the importance of good bowel prep.? Recommended the use of Vaseline or Calmoseptine OTC & baby wipes with bowel movements to promote comfort.? ?Patient verbalizes understanding and agrees to plan of care.? He was given the opportunity to ask questions and all questions answered.? We will see him after the procedure.? Medications: New polyethylene glycol 3350 (Miralax) As directed by gastroenterology department at [facility] 238 grams PO ONCE 238 grams 0RF Z12.11 - Encounter for screening for malignant neoplasm of colon bisacodyl (Dulcolax (bisacodyl)) take 4 tabs at noon the day before your colonoscopy 20 mg (4 x 5 mg) PO ONCE 4 tabs 0RF constipation 1 day Z12.11 - Encounter for screening for malignant neoplasm of colon Coding Level of Care Code New Pt Level 3 (75609) Diagnoses Screen for colon cancer Z12.11 Positive colorectal cancer screening using Cologuard test R19.5 Time Spent (min) 40 Comment 30 minutes spent with patient and additional 10 minutes spent reviewing his records
[2025-01-27 09:22] VITALS: BP 144/84; PULSE 86; O2SAT 96; BMI 37.9
--- OUTSIDE RECORDS SUMMARY | 2025-01-27 09:36 | XMS_ITS | Clinical Summary ---
Author Organization [employer] Address [address] [facility] 7t [place] [address] Care Team Providers Care Casting Machine Service Operator Name Role Phone DarlingClarisa segura KIMMIE Primary Care Provider [phone] Allergies No known active allergies Medications nicotine (Nicoderm CQ) 21 MG/24HR patchIndications: Tobacco use disorder Place 1 patch on the skin 1 (one) time each day at the same time. 30 patch 1 06/20/2024 Active Blood Pressure Monitoring (Blood Pressure Cuff) miscIndications:H ypertension, unspecified type 1 kit if needed each day (elevated bp). 1 each 08/05/2024 Active olmesartan-hydroC HLOROthiazide (Benicar HCT) 40-12.5 MG tabletIndications :Primary hypertension Take 1 tablet by mouth Once per day. 90 tablet 2 11/11/2024 08/08/19 26 Active Active Problems Problem Noted Date Diagnosed [...] of left knee 08/05/2024 Assessment & Plan (11/11/2024 1:38 PM EDT): Recently had x-ray of left knee, knee tapped, fluid removed. Returning and interferes with work Assessment & Plan (08/24/2024 4:37 PM EST): [...] patch prescribed Hypertension 06/20/2024 Assessment & Plan (11/11/2024 1:37 PM EDT): Above goal in office closer to goal at home Increase olmesartan new rx 40 mg/12.5 hydrochlorothiazide Return to clinic for 4-6 weeks Assessment & Plan (06/29/2024 5:07 PM EST): [...] Encounters Date Type Department Care Team Description 01/12/2025 Results Follow-Up [facility] [address] [place] [phone] Clarisa Diana NP Hepatitis C Antibody with Reflex to HCV, RNA, Quantitative, Real-Time PCR, Hepatitis B Surface Antibody, Qualitative, Hepatitis B Core Antibody, Total, Additional followed-up results: 3 12/30/[address] [address] Soheila Pierre MA r/s appointment 11/11/2024 1:30 PM EDT Office Visit [address] [address] Clarisa Diana NP Primary hypertension (Primary Dx); Chronic pain of left knee 11/11/2024 Travel 11/10/2024 Telephone [facility] [address] [place] [address] Clarisa Diana NP CHART PREP from Last 3 Months Social History Tobacco [...] Sign Reading Time Taken Comments Blood Pressure 150/87 11/11/2024 1:19 PM EDT Pulse 74 11/11/2024 1:19 PM EDT Temperature 36.8 C (98.2 F) 11/11/2024 1:19 PM EDT Respiratory Rate 18 11/11/2024 1:19 PM EDT Oxygen Saturation 96% 11/11/2024 1:19 PM EDT Inhaled Oxygen Concentration - - Weight 102 kg (225 lb) 11/11/2024 1:19 PM EDT Height 162.6 cm (5' 4 ) 11/11/2024 1:19 PM EDT Body Mass Index 38.62 11/11/2024 1:19 PM EDT Plan of Treatment Upcoming Encounters Date Type Department Care Team (Late st Contact Info) Description 02/17/2025 1:45 PM EDT Office Visit [facility] [address] [place] [address] Clarisa Diana NP [address] [place] [address] Health Maintenance Due Date Last Done Comments CT Colonography 1966 Colonoscopy 1966 FIT 1966 Sigmoidoscopy 1966 DTaP/Tdap/Td Vaccines (1 - Tdap) 1985 Hepatitis B Vaccines (1 of 3 - 19+ 3-dose series) 1985 Pneumococcal Vaccine: 50+ Years (1 of 2 - PCV) 1985 Zoster Vaccines (1 of 2) 2016 COVID-19 Vaccine (3 - 2023-2 5 season) 2024 02/16/2021, 01/15/2021 Influenza Vaccine (#1) 2025 SDOH Screening 06/13/2025 06/13/2024 Depression Screening 06/20/2025 06/20/2024, 06/20/2024 FOBT 08/21/2025 08/21/2024 Diabetes: Hemoglobin A1C 09/02/2025 09/02/2024 Alcohol/Substance Use Screening 11/11/2025 11/11/2024 Disability Screening 11/11/2025 11/11/2024 Tobacco Screening 11/11/2025 11/11/2024 Colorectal Cancer Screening 08/21/2027 FIT DNA/Cologuard 08/21/2027 [...] patient's age to complete this topic Meningococcal B Vaccine Aged Out No l onger eligible based on patient's age to complete [...] Procedure Name Priority Date/Time Associated Diagnosis Comments HEPATITIS C AB W/REFL TO HCV RNA, QN, PCR Routine 09/02/2024 3:55 PM EST Healthcare maintenance HIV 1/2 ANTIGEN/ANTIBODY, FOURTH GENERATION W/RFL Routine 09/02/2024 3:55 PM EST Healthcare maintenance HEMOGLOBIN A1C Routine 09/02/2024 3:55 PM EST Hypertension, unspecified type LIPID PANEL, STANDARD Routine 09/02/2024 3:55 PM EST Hypertension, unspecified type LAB COLOGUARD COLON CANCER SCREEN Routine 08/21/2024 5:00 AM EST Screening for colon cancer from Last 3 Months or Most Recently Relevant to Health Maintenance Results * Hepatitis C Antibody with Reflex to HCV, RNA, Quantitative, Real-Time PCR (09/02/2024 3:55 PM EST) Hepatitis C Antibody Nonreactive Nonreactive [facility] Comment:Antibodies to HCV no t detected; does not exclude early acuteHCV infection. Blood Venous blood specimen / Unknown 09/02/2024 3:55 PM EST 09/02/2024 6:14 PM EST us Clarisa Diana NP LAB BLOOD ORDERABLES Final Resul t [facility] [address] [place] [phone] * HIV-1/2 Antigen and Antibodies, Fourth Generation, with Reflexes (09/02/2024 3:55 PM EST) HIV AB/AG Nonreactive Nonreactive [facility] Comment:HIV-1 p24 Ag and/or HIV-1/HIV-2 Ab not detected.A test result that is nonreactive does not exclude thepossibility of exposure to or infection with HIV-1 and/orHIV-2. Nonreactive results in this assay for individualswith prior exposure to HIV-1 and/or HIV-2 may be due toantigen and antibody levels that are below the limit ofdetection of this assay.The [employer] HIV Ag/Ab Combo assay result andsupplemental assay results should be interpreted inconjunction with the patient's clinical presentation,history and other laboratory results. If the results areinconsistent with clinical evidence, additional testing issuggested to confirm the result. Blood Venous blood specimen / Unknown 09/02/2024 3:55 PM EST 09/02/2024 6:14 PM EST us Clarisa Diana HOTEL OPERATIONS MANAGER LAB BLOOD ORDERABLES Final Resul t Performing Organization Address [facility] Phone Number [facility] [address] [place] [phone] * Hemoglobin A1c (09/02/2024 3:55 PM EST) Hemoglobin A1c 5.7 <6.0 % [facility] Comment:Hemoglobin A1C Refer ence Range Adults: 4.8 - 6.0 % Non diabetic: < 6.0 % Goal: < 7.0 %Additional Action Suggested: > 8.0 %Note: Hemoglobin A1c results are invalid for patients with abnormal amounts of HbF. Blood transfusions may impact the HbA1c concentration in the patient sample. Estimated Average Glucose 117 mg/dL [facility] Comment:eAG = Estimated ave rage glucose which is %A1C expressed asaverage glucose, using the formula of the H5C-MkxvonqBdfsiai Glucose study (ADAG), Diabetes Care, Vol.31,#8,Jan. 2007 Blood Venous blood specimen / Unknown 09/02/2024 3:55 PM EST 09/02/2024 6:14 PM EST us Clarisa Diana NP LAB BLOOD ORDERABLES Final Resul t Performing Organization Address [facility] Phone Number [facility] [address] [place] [phone] * (ABNORMAL) Lipid Panel, Standard (09/02/2024 3:55 PM EST) Triglycerides 173(H) <150 mg/dL [facility] Comment:Desirable Triglyceri de: less than 150 mg/dLBorderline High Triglyceride 150-199 mg/dLHigh Triglyceride: 200-499 mg/dLVery High Triglyceride: greater than or equal to 5OO mg/dL Cholesterol 163 <200 mg/dL [facility] Comment:Desirable Cholestero l: less than 200 mg/dLBorderline High Cholesterol: 200-239 mg/dLHigh Cholesterol: greater than 239 mg/dL LDL Cholesterol Calculated 85 <100 mg/dL [facility] Comment:Desirable LDL: less than 100 mg/dLNear Optimal/Above Optimal LDL: 110- 129 mg/dLBorderline High LDL: 130-159 mg/dLHigh LDL: 160-189 mg/dLVery High LDL: greater than or equal to 190 mg/dL HDL Cholesterol 44 >40 mg/dL [facility] Comment:Desirable HDL: great er than 40 mg/dL Note: This HDL assay may give artificially low results in patients with liver disease. Blood Venous blood specimen / Unknown 09/02/2024 3:55 PM EST 09/02/2024 6:14 PM EST us Clarisa Diana NP LAB BLOOD ORDERABLES Final Resul t [facility] [address] [place] [phone] * (ABNORMAL) Cologuard?? colon cancer screening (08/21/2024 5:00 AM EST) Cologuard Result Positive( A) Negative 08/26/2024 7:47 PM EST [facility] (CLIA #:[id number]) Comment: POSITIVE TEST RESULT. A positive Cologuard result should be followed with a colonoscopy or visual examination of the colon. The normal value (reference range) for this assay is negative. TEST DESCRIPTION: Composite algorithmic analysis of stool DNA-biomarkers with hemoglobin immunoassay. Quantitative values of individual biomarkers are not [...] (Gale Orellana al, N Engl J Med 2014;370(14):6936-7210.) Cologuard may produce a false negative or false positive result (no colorectal cancer or precancerous polyp present at colonoscopy follow up). A negative Cologuard test result does not guarantee the absence of CRC or advanced adenoma (pre-cancer). The current Cologuard screening interval is every 3 years. ([place] Cancer Society and U.S. Multi-Society Task Force). Cologuard performance data in a 10,000 patient pivotal study using colonoscopy as the reference method can be accessed at the following location: www.[employer]/results. Additional description of the Cologuard test process, warnings and precautions can be found at www.[employer]. Stool specimen (specimen) 08/21/2024 5:00 AM EST 08/23/2024 12:32 PM EST Clarisa Diana NP LAB MOLECULAR DIAGNOSTICS ORDERA BLES Final Result [facility] (CLIA #:[id number]) [address] [place] [address], from Last 3 Months or Most Recently Relevant to Health Maintenance Insurance [facility] C3 Care Teams Casting Machine Service Operator Relationship Specialty Start Date End Date Clarisa Diana NP [address] [place] [address] PCP - General Family Medicine 06/20/24
== END 2025-01-27 09:55 | disposition home or self-care (01) ==
LOC: HO.HGI 09:10
PROVIDERS: PCP Nurse Practitioner Family; Visit Provider Nurse Practitioner Family
DX: Z01.818 Encounter for other preprocedural examination (principal); Z12.11 Encounter for screening for malignant neoplasm of colon; R19.5 Other fecal abnormalities
CPT/HCPCS: 99203

== ENCOUNTER → 2025-01-27 09:09 | Outpatient (BNVA) | payer MEDICAID, SELFPAY | PROVIDERS: PCP Nurse Practitioner Family; Visit Provider Nurse Practitioner Family | DX: Z01.818 Encounter for other preprocedural examination (principal); R19.5 Other fecal abnormalities | CPT/HCPCS: 99212 ==

== ENCOUNTER 2025-03-31 08:16 | Day surgery (SDC) | payer OTHER, SELFPAY ==
--- OUTSIDE RECORDS SUMMARY | 2025-03-17 14:55 | XMS_ITS | Clinical Summary ---
Author Organization [employer] Address [address] [facility] 7t [place] [address] Care Team Providers Care Child Custody Evaluator Name Role Phone Clarisa Diana NP Primary Care Provider [phone] Allergies No known active allergies Medications nicotine (Nicoderm CQ) 21 MG/24HR patchIndications: Tobacco use disorder Place 1 patch on the skin 1 (one) time each day at the same time. 30 patch 1 4 Active Blood Pressure Monitoring (Blood Pressure Cuff) miscIndications:H ypertension, unspecified type 1 kit if needed each day (elevated bp). 1 each 5 Active olmesartan-hydroC HLOROthiazide (Benicar HCT) 40-12.5 MG tabletIndications :Primary hypertension Take 1 tablet by mouth Once per day. 90 tablet 2 5 08/08/19 26 Active ibuprofen 800 MG tablet Take 1 tablet (800 mg) by mouth if needed in the morning and at bedtime for mild pain. 90 tablet 1 5 05/18/20 25 Active amLODIPine (Norvasc) 5 MG tablet Take 1 tablet (5 mg) by mouth Once per day. 30 tablet 2 5 02/18/20 26 Active atorvastatin (Lipitor) 20 MG tablet Take 1 tablet (20 mg) by mouth Once per day. 30 tablet 11 5 02/18/20 26 Active acetaminophen (Tylenol Extra Strength) 500 MG tablet Take 2 tablets (1,000 mg) by mouth every 8 (eight) hours if needed for mild pain for up to 10 days. 30 tablet 2 5 02/28/20 25 Active Problems Problem Noted Date Diagnosed Date Arthritis 02/17/2025 Assessment & Plan (02/17/2025 6:08 PM EDT): Pt requesting ibuprofen, reviewed sparing usage, Hyperlipidemia 02/17/2025 Assessment & Plan (02/17/2025 6:08 PM EDT): Ascvd 16% initiate statin, monitor for side effects Colon cancer screening 08/24/2024 Assessment & Plan (08/24/2024 4:37 PM EST): Cologuard ordered Dietary counseling 08/24/2024 Assessment & Plan [...] Tobacco use disorder 06/20/2024 Assessment & Plan (02/17/2025 6:08 PM EDT): Continues to cut down Assessment & Plan (08/24/2024 4:37 PM EST): Reviewed tobacco cessation strategies , pt contemplative Assessment & Plan (06/29/2024 5:05 PM EST): Pt motivated to cut down, patch prescribed Hypertension 06/20/2024 Assessment & Plan (02/17/2025 6:09 PM EDT): Above goal add amodipine 5 mg Assessment & Plan (11/11/2024 1:37 PM EDT): [...] Encounters Date Type Department Care Team Description 03/13/2025 Telephone [facility] [address] [place] [phone] Clarisa Diana NP June03/11/2025 Refill [facility] [address] [place] [address] Clarisa Diana NP 02/17/2025 1:45 PM EDT Office Visit [facility] [address] [place] [phone] Clarisa Diana NP Arthritis (Primary Dx); Hypertension, unspecified type; Hyperlipidemia, unspecified hyperlipidemia type; Tobacco use disorder 02/17/2025 Travel 02/16/2025 Telephone [facility] [address] [place] [address] Clarisa Diana NP Chart Prep 01/12/2025 Results Follow-Up [facility] [address] [place] [address] Clarisa Diana NP Hepatitis C Antibody with Reflex to HCV, RNA, Quantitative, Real-Time PCR, Hepatitis B Surface Antibody, Qualitative, Hepatitis B Core Antibody, Total, Additional followed-up results: 3 12/30/2024 Telephone [facility] [address] [place] [address] Soheila Pierre MA r/s appointment from Last 3 Months Social History Tobacco [...] Sign Reading Time Taken Comments Blood Pressure 146/84 02/17/2025 1:47 PM EDT Pulse 89 02/17/2025 1:47 PM EDT Temperature 36.5 C (97.7 F) 02/17/2025 1:47 PM EDT Respiratory Rate 20 02/17/2025 1:47 PM EDT Oxygen Saturation 97% 02/17/2025 1:47 PM EDT Inhaled Oxygen Concentration - - Weight 105 kg (231 lb 6.4 oz) 02/17/2025 1:47 PM EDT Height 165.1 cm (5' 5 ) 02/17/2025 1:47 PM EDT Body Mass Index 38.51 02/17/2025 1:47 PM EDT Plan of Treatment Upcoming Encounters Date Type Department Care Team (Late st Contact Info) Description 06/05/2025 1:30 PM EST Office Visit [facility] [address] [place] [address] Clarisa Diana NP [address] [place] [address] Health Maintenance Due Date Last Done Comments CT Colonography 1966 Colonoscopy 1966 FIT 1966 Sigmoidoscopy 1966 DTaP/Tdap/Td Vaccines (1 - Tdap) 1985 Hepatitis B Vaccines (1 of 3 - 19+ 3-dose series) 1985 Pneumococcal Vaccine: 50+ Years (1 of 2 - PCV) 1985 Zoster Vaccines (1 of 2) 2016 COVID-19 Vaccine (3 - 2024-2 6 season) 2025 02/16/2021, 01/15/2021 Influenza Vaccine (#1) 2025 SDOH Screening 06/13/2025 06/13/2024 Depression Screening 06/20/2025 06/20/2024, 06/20/2024 FOBT 08/21/2025 08/21/2024 Diabetes: Hemoglobin A1C 09/02/2025 09/02/2024 Alcohol/Substance Use Screening 11/11/2025 11/11/2024 Disability Screening 11/11/2025 11/11/2024 Tobacco Screening 02/17/2026 02/17/2025 Colorectal Cancer Screening 08/21/2027 FIT DNA/Cologuard 08/21/2027 [...] PM EST) Hepatitis C Antibody Nonreactive Nonreactive [facility] Comment:Antibodies to HCV no t detected; does not exclude early acuteHCV infection. Blood Venous blood specimen / Unknown 09/02/2024 3:55 PM EST 09/02/2024 6:14 PM EST us Clarisa Diana NP LAB BLOOD ORDERABLES Final Resul t [facility] [address] [place] [phone] * HIV-1/2 Antigen and Antibodies, Fourth Generation, with Reflexes (09/02/2024 3:55 PM EST) HIV AB/AG Nonreactive Nonreactive [facility] Comment:HIV-1 p24 Ag and/or HIV-1/HIV-2 Ab not detected.A test result that is nonreactive does not exclude thepossibility of exposure to or infection with HIV-1 and/orHIV-2. Nonreactive results in this assay for individualswith prior exposure to HIV-1 and/or HIV-2 may be due toantigen and antibody levels that are below the limit ofdetection of this assay.The [employer] HIV Ag/Ab Combo assay result andsupplemental assay results should be interpreted inconjunction with the patient's clinical presentation,history and other laboratory results. If the results areinconsistent with clinical evidence, additional testing issuggested to confirm the result. Blood Venous blood specimen / Unknown 09/02/2024 3:55 PM EST 09/02/2024 6:14 PM EST us Clarisa Graef WATER POLLUTION SCIENTIST LAB BLOOD ORDERABLES Final Resul t Performing Organization Address [facility] Co de Phone Number [facility] [address] [place] [phone] * Hemoglobin A1c (09/02/2024 3:55 PM EST) Hemoglobin A1c 5.7 <6.0 % [facility] Comment:Hemoglobin A1C Refer ence Range Adults: 4.8 - 6.0 % Non diabetic: < 6.0 % Goal: < 7.0 %Additional Action Suggested: > 8.0 %Note: Hemoglobin A1c results are invalid for patients with abnormal amounts of HbF. Blood transfusions may impact the HbA1c concentration in the patient sample. Estimated Average Glucose 117 mg/dL [facility] Comment:eAG = Estimated ave rage glucose which is %A1C expressed asaverage glucose, using the formula of the P3V-RcoayaePuxpnyk Glucose study (ADAG), Diabetes Care, Vol.31,#8,Jan. 2007 Blood Venous blood specimen / Unknown 09/02/2024 3:55 PM EST 09/02/2024 6:14 PM EST us Clarisa Diana WATER POLLUTION SCIENTIST LAB BLOOD ORDERABLES Final Resul t Performing Organization Address [facility] de Phone Number [facility] [address] [place] [phone] * (ABNORMAL) Lipid Panel, Standard (09/02/2024 3:55 PM EST) Triglycerides 173(H) <150 mg/dL [facility] Comment:Desirable Triglyceri de: less than 150 mg/dLBorderline High Triglyceride 150-199 mg/dLHigh Triglyceride: 200-499 mg/dLVery High Triglyceride: greater than or equal to 5OO mg/dL Cholesterol 163 <200 mg/dL [facility] Comment:Desirable Cholestero l: less than 200 mg/dLBorderline High Cholesterol: 200-239 mg/dLHigh Cholesterol: greater than 239 mg/dL LDL Cholesterol Calculated 85 <100 mg/dL [facility] Comment:Desirable LDL: less than 100 mg/dLNear Optimal/Above Optimal LDL: 110- 129 mg/dLBorderline High LDL: 130-159 mg/dLHigh LDL: 160-189 mg/dLVery High LDL: greater than or equal to 190 mg/dL HDL Cholesterol 44 >40 mg/dL [facility] Comment:Desirable HDL: great er than 40 mg/dL Note: This HDL assay may give artificially low results in patients with liver disease. Blood Venous blood specimen / Unknown 09/02/2024 3:55 PM EST 09/02/2024 6:14 PM EST us Clarisa Diana NP LAB BLOOD ORDERABLES Final Resul t [facility] [address] [place] [phone] * (ABNORMAL) Cologuard?? colon cancer screening (08/21/2024 5:00 AM EST) Cologuard Result Positive( A) Negative 08/26/2024 7:47 PM EST [facility] (CLIA #:[id number]) Comment: POSITIVE TEST RESULT. A positive Cologuard [...] (Gale Orellana al, N Engl J Med 2014;370(14):1154-1436.) Cologuard may produce a false negative or false positive result (no colorectal cancer or precancerous polyp present at colonoscopy follow up). A negative Cologuard test result does not guarantee the absence of CRC or advanced adenoma (pre-cancer). The current Cologuard screening interval is every 3 years. ([place] Cancer Society and U.S. Multi-Society Task Force). Cologuard performance data in a 10,000 patient pivotal study using colonoscopy as the reference method can be accessed at the following location: www.[employer]/results. Additional description of the Cologuard test process, warnings and precautions can be found at www.[employer]. Stool specimen (specimen) 08/21/2024 5:00 AM EST 08/23/2024 12:32 PM EST Clarisa Diana NP LAB MOLECULAR DIAGNOSTICS ORDERA BLES Final Result [facility] (CLIA #:[id number]) [address] [place] [address], from Last 3 Months or Most Recently Relevant to Health Maintenance Insurance [facility] 2 Care Teams Child Custody Evaluator Relationship Specialty Start Date End Date Clarisa Diana NP [address] [place] [address] PCP - General Family Medicine 06/20/24
--- OUTSIDE RECORDS SUMMARY | 2025-03-17 14:55 | XMS_ITS | Encounter Summary ---
Author Organization [employer] Address [address] [facility] 7t [place] [address] Care Team Providers Care Container Packer Operator Name Role Phone Clarisa Diana NP Primary Care Provider [phone] Reason for Visit * Reason Comments Med Change Request Encounter Details Date Type Department Care Team ([facility] st Contact Info) Description 03/11/[address] [facility] [address] [place], [place] [phone] Clarisa Diana NP [address] [place], [place] [phone] Social History Tobacco Use Types Packs/Day Years [...] AM EDT documented as of this encounter Plan of Treatment Upcoming Encounters Date Type Department Care Team (Late st Contact Info) Description 06/05/2025 1:30 PM EST Office Visit [facility] [address] [place] [phone] Clarisa Diana NP [address] [place] [address] documented as of this encounter Visit Diagnoses Not on filedocumented in this encounter Additional Health Concerns Assessment Noted Time PHQ-9 Depression Total Score: 0 06/20/20 9:31 AM EST documented as of this encounter Care Teams Container Packer Operator Relationship Specialty Start Date End Date Clarisa Diana NP [address] [place] [phone] PCP - General Family Medicine 06/20/24 documented as of this encounter
--- OUTSIDE RECORDS SUMMARY | 2025-03-17 14:55 | XMS_ITS | Encounter Summary ---
Author Organization [employer] Address [address] [facility] 7t [place] [address] Care Team Providers Care Cushion Assembler Name Role Phone Clarisa Diana BOTTLING EQUIPMENT SALES REPRESENTATIVE Primary Care Provider [phone] Reason for Visit * Reason Onset Date Comments June Recall 03/13/2025 Encounter Details Date Type Department Care Team (Late st Contact Info) Description 03/13/[address] [facility] [address] [place], [place] [phone] Clarisa Diana NP [address] [place], [place] [phone] June Social History Tobacco Use Types Packs/Day Years [...] AM EDT documented as of this encounter Miscellaneous Notes * Telephone Encounter - Marzena Tyson MA - 03/13/2025 12:02 PM EDT Telephone call to patient to schedule the following recall: Visit type: Follow up Appointment notes: htn and hyperlipidemia Patient agree to appointment on 06/05/25 at 1:30 PM with Adalgisa. documented in this encounter Plan of Treatment Upcoming Encounters Date Type Department Care Team (Late st Contact Info) Description 06/05/2025 1:30 PM EST Office Visit [facility] [address] [place] [address] Clarisa Diana NP [address] [place] [address] documented as of this encounter Visit Diagnoses Not on filedocumented in this encounter Additional Health Concerns Assessment Noted Time PHQ-9 Depression Total Score: 0 06/20/20 9:31 AM EST documented as of this encounter Care Teams Cushion Assembler Relationship Specialty Start Date End Date Clarisa Diana NP [address] [place] [address] PCP - General Family Medicine 06/20/24 documented as of this encounter
--- NOTE | 2025-03-30 11:11 | HO.ANESPROP2 ---
Documented by User: Amelia Mccormack NP 03/30/25 11:11 HPI - Anesthesia Eval Consult details Narrative: 59 yr old male for colonoscopy [facility] Active Problems Active Problems: All Active Problems Arthritis of left knee (Acute) Past Medical History Medical History HTN (hypertension) Family History Family History Mother Breast cancer Surgical History Surgical History H/O colonoscopy Social History Social History Patient Tobacco Use Status: Current everyday Tobacco user Tobacco use type: Cigarette Cigarette Packs Per Day: 1 Cigarettes Per Day: 20.0 Use of substances other than those prescribed or required for medical reasons: Yes Substance Use Type Other:: 3 blunts per day Are you DNR?: No Advance Directives: No Advance Directives Information Provided: Yes Poor oral hygiene: No Current occupational status: unemployed Meds Allergies Allergy/AdvReac Type Severity Reaction Status Date / Time No Known Allergies Allergy Verified 10/15/24 13:57 Home Medications ?Medication ?Instructions ?Recorded ?Confirmed ?Last Taken ?Type olmesartan 20 1 tab PO DAILY 10/15/24 Unknown History mg-hydrochlorothiazide 12.5 mg tablet Documented by User: Lucian Redding MD 03/31/25 10:03 [facility] Past Medical History Medical History HTN (hypertension) Functional capacity: independent ambulation Family History Family History Mother Breast cancer Family history of problems with anesthesia: No Surgical History Surgical History H/O colonoscopy Social History Social History Patient Tobacco Use Status: Current everyday Tobacco user Tobacco use type: Cigarette Cigarette Packs Per Day: 1 Cigarettes Per Day: 20.0 Use of substances other than those prescribed or required for medical reasons: Yes Substance Use Type Other:: 3 blunts per day Are you DNR?: No Advance Directives: No Advance Directives Information Provided: Yes Poor oral hygiene: No Current occupational status: unemployed Meds Allergies Allergy/AdvReac Type Severity Reaction Status Date / Time No Known Allergies Allergy Verified 10/15/24 13:57 Home Medications ?Medication ?Instructions ?Recorded ?Confirmed ?Last Taken ?Type olmesartan 20 1 tab PO DAILY 10/15/24 Unknown History mg-hydrochlorothiazide 12.5 mg tablet Exam Exam Date and Time: 03/31/25 Airway Mallampati Class: II TM Dist: >3cm Neck ROM: Full Loose/Missing/Broken Teeth: Yes Heart: RRR RBB Lungs: CTAB vesicular Assessment and Plan Assessment Anesthesia Assessment: Anesthesia Plan Discussed, Smoking Cess. Discussed and Chart Reviewed Final Anesthetic Review Family History of Problems with Anesthesia: No NPO: Yes ASA Class: II Final Preanesthetic Review: No Changes in Pt Med Stat, Meds/Allgs Chart Reviewed, Consent Obtained/Reviewed and Anes Risks/Benef Reviewed Patient Risk: Low Procedure Risk: Low Anesthetic Plan Anesthetic Plan: MAC: Disposition: Standard PACU
[2025-03-31 09:18] VITALS: BMI 36.9
[2025-03-31 09:19] VITALS: BP 151/91; PULSE 74; RESP 16; TEMP 36.7; O2SAT 97
[2025-03-31] MEDS: Lactated Ringers 1,000 ML 100 ML IVCONT (09:37)
--- NOTE | 2025-03-31 09:51 | MHC.SHP ---
Pre-Procedural Eval Section A - 24 Hr Update-Section A only Date of Service: 03/31/25 Section B - Complete if H&P > 30 days Chief Complaint: screening Relevant Family History (Specify if Yes): Yes Relevant Social History: Tobacco Use Present Medications: see Short Stay Collaborative assessment Medical History: Significant History (HTN (hypertension)) History of Previous Operations: No relevant previous surgery Allergies: Allergies Allergy/AdvReac Type Severity Reaction Status Date / Time No Known Allergies Allergy Verified 10/15/24 13:57 Review of Systems Sugical H&P ROS: Negative: Constitution, Cardiovascular, Respiratory, Neurological, Psychiatric, Hem-Onc, Allergic/Immunologic, Gastrointestinal, Genitourinary, Musculoskeletal, Integumentary, Endocrine and Eyes/Ears/Nose/Throat Exam Surgical H&P Exam: Normal: HEENT, Normal: Heart, Normal: Lungs, Normal: Extremities, Normal: Abdomen, Normal: Skin and Normal: Neurological Plan Diagnosis/Plan: Unchanged I have reviewed the history and physical and performed a pertinent physical examination on my patient. No changes have occurred unless specified. Time Spent With Patient Time: Total time managing care of this patient today ____ minutes.
--- NOTE | 2025-03-31 10:37 | HO.OPN-COLON ---
Colonoscopy Operative Note Operative Note Date of Service: 03/31/25 Narrative: Operative Information Procedure Description: Colonoscopy Indication: pos cologuard Anesthesia: MAC COLONOSCOPY Instrument: Olympus variable stiffness pediatric scope 190L Colonoscopy Monitoring: Vital signs and clinical assessment, continuous EKG monitoring, Pulse oximetry, Carbon Dioxide monitoring and blood pressure monitoring were done throughout the procedure. Colon withdrawal time was 21 minutes. Procedure: The patient was placed in the left lateral decubitis position and pre-procedure medications were administered. After a digital rectal examination of the ano-rectum, the video colonoscope was inserted into the rectum and advanced through the colon to the cecum/TI. The colonoscope was slowly withdrawn in a retrograde panoramic fashion and the colon mucosa was carefully examined including a retroflexed view of the rectum. Findings and interventions are described below. Procedure Difficulty: easy Findings: Terminal Ileum-normal Cecum:normal Ascending Colon: 8-10 mm sessile polyp removed with cold snare Transverse Colon -normal Descending Colon:normal Sigmoid Colon: moderate diverticulosis. At 30 cm from anal verge a pedunculated lesion noted with v thick stalk, about 14-16 mm in diameter. It did not have typical surface markings to suggest an adenoma and had a yellowish tinge. It was injected with few cc of epinephrine to get a better appreciation. Biopsies were taken and some yellowish material was noted on the biopsy suggestive of lipoma. Rectum: Retroflexion with medium sized internal hemorrhoids seen, grade I Anorectum - normal Intervention: cold forceps, epinephrine injection, cold snare Colon preparation: Lowell Bowel Preparation Scale Right colon; 2 Transverse colon: 2 Left colon; 2 (0 = Unprepared colon segment with mucosa not seen due to solid stool that cannot be cleared. 1 = Portion of mucosa of the colon segment seen, but other areas of the colon segment not well seen due to staining, residual stool and/or opaque liquid. 2 = Minor amount of residual staining, small fragments of stool and/or opaque liquid, but mucosa of colon segment seen well. 3 = Entire mucosa of colon segment seen well with no residual staining, small fragments of stool or opaque liquid) Impression and Post Procedure Diagnosis: diverticulosis colon polyp internal hemorrhoids suspected large lipoma in sigmoid. Plan: High fiber diet leaflet Avoid straining at stool, epsom salts and sitz bath, anusol supps or cream Repeat Colonoscopy in 1-2 year or earlier if clinically indicated- if bx confirm this is actually an adenoma will bring back for endoscopic removal. Above findings were reviewed with the patient and relevant handouts were provided if indicated.
[2025-03-31 10:42] VITALS: BP 140/87; PULSE 73; RESP 17; TEMP 36.6; O2SAT 95
[2025-03-31 10:57] VITALS: BP 137/86; PULSE 68; RESP 19; TEMP 36.2; O2SAT 98
== END 2025-03-31 11:21 | disposition home or self-care (01) ==
PROVIDERS: PCP Nurse Practitioner Family; Visit Provider Internal Medicine Gastroenterology
PROC: 0DJD8ZZ Inspection of Lower Intestinal Tract, Via Natural or Artificial Opening Endoscopic (ICD-10-PCS; CPT 45378; principal; 2025-03-31 10:50)
DX: Z12.11 Encounter for screening for malignant neoplasm of colon (principal); R19.5 Other fecal abnormalities; D12.2 Benign neoplasm of ascending colon; D12.5 Benign neoplasm of sigmoid colon; K64.8 Other hemorrhoids
CPT/HCPCS: 45385; 45380; 45381; 88305; J0168; J2003; J2704

== ENCOUNTER → 2025-03-31 08:16 | Outpatient (BNV) | payer OTHER, SELFPAY | PROVIDERS: PCP Nurse Practitioner Family; Visit Provider Internal Medicine Gastroenterology | DX: Z12.11 Encounter for screening for malignant neoplasm of colon (principal); R19.5 Other fecal abnormalities; D12.2 Benign neoplasm of ascending colon; D12.5 Benign neoplasm of sigmoid colon; K57.30 Diverticulosis of large intestine without perforation or abscess without bleeding; K64.0 First degree hemorrhoids | CPT/HCPCS: 45381; 45385 ==